=== PATIENT | female | born 1980 | race Caucasian/White ===

== ENCOUNTER 2017-12-07 00:06 | Inpatient (IN) | payer BC ==
[2017-12-07] MEDS ORDERED: Lidocaine 1% 50 ML MDV INJECT PRN (00:34)
[2017-12-07] MEDS ORDERED: Sodium Chloride 0.9% 2.5 ML Syringe FLUSH PRN (00:34)
[2017-12-07] MEDS ORDERED: Sodium Chloride 0.9% 10 ML Syringe FLUSH PRN (00:34)
[2017-12-07] MEDS ORDERED: Methylergonovine 0.2 MG/1 ML Amp IM PRN (00:34)
[2017-12-07] MEDS ORDERED: Terbutaline 1 MG/ML SDV SUBCUT PRN (00:34)
[2017-12-07] MEDS ORDERED: Water For Irrigation,Sterile 1,000 ML Container IRR PRN (00:34)
[2017-12-07] MEDS ORDERED: Carboprost Tromethamine 250 MCG/1 ML Amp IM PRN (00:34)
[2017-12-07] MEDS ORDERED: Misoprostol 25 MCG (1/4 of 100 MCG) Tab PO PRN (00:34)
[2017-12-07] MEDS ORDERED: Tranexamic Acid 1,000 MG in Sodium Chloride 0.9% 100 ML IV PRN (00:34)
[2017-12-07] MEDS ORDERED: Misoprostol 50 MCG (1/2 of 100 MCG) Tab VAG ONE (00:41)
[2017-12-07] MEDS ORDERED: Misoprostol 25 MCG (1/4 of 100 MCG) Tab PO SCH (00:45)
[2017-12-07] MEDS ORDERED: Oxytocin/0.9 % Sodium Chloride 30 UNIT/500 ML BAG IV SCH ×2 (00:45)
[2017-12-07] MEDS ORDERED: Lactated Ringers 1,000 ML IV SCH (00:45)
[2017-12-07] MEDS ORDERED: Nalbuphine 10 MG/1 ML Vial IVPUSH SCH (00:45)
[2017-12-07] MEDS ORDERED: Misoprostol 50 MCG (1/2 of 100 MCG) Tab VAG PRN (03:48)
--- NOTE | 2017-12-07 08:31 | PCM.LDHP ---
L&D History of Present Illness - General Date of Service: 12/07/17 Admit Problem/Dx: Patient Status Order with Admit Dx/Problem 12/07/17 00:34 Patient Status [ADT] Routine Admission Diagnosis/Problem Admission Diagnosis/Problem -related examination 12/07/17 08:26 37 yo EDC 12/02/2017 40 5/7wks A+, R-NI, GBS pos with PCN allergy. IOL for post dates Source of Information: Patient History Limitations: Reports: No Limitations - History of Present Illness Improves with: Reports: None Worsens with: Reports: None Associated Symptoms: Reports: N - Related Data Allergies/Adverse Reactions: Allergies Allergy/AdvReac Type Severity Reaction Status Date / Time amoxicillin trihydrate Allergy rashes Verified 11/30/15 15:39 [From Augmentin] Past Medical History - Past Health History Medical/Surgical History: Denies Medical/Surgical History Social & Family History - Family History Family Medical History: Noncontributory - Tobacco Use Smoking Status *Q: Never Smoker Second Hand Smoke Exposure: No - Caffeine Use Caffeine Use: Reports: Soda - Recreational Drug Use Recreational Drug Use: No H&P Review of Systems - Review of Systems: Review Of Systems: See Below General: Reports: No Symptoms HEENT: Reports: No Symptoms Pulmonary: Reports: No Symptoms Cardiovascular: Reports: No Symptoms Gastrointestinal: Reports: No Symptoms Genitourinary: Reports: No Symptoms Musculoskeletal: Reports: No Symptoms Skin: Reports: No Symptoms Psychiatric: Reports: No Symptoms Neurological: Reports: No Symptoms Hematologic/Lymphatic: Reports: No Symptoms Immunologic: Reports: No Symptoms L&D Exam - Exam Exam: See Below - Vital Signs Weight: 74.389 kg - OB Specific Heart Tones: Present Heart Rate (FHR) Variability: Moderate (6-25 bmp) - Brewer Score Brewer Score Cervix Position: Posterior Brewer Score Consistency: Soft Brewer Score Effacement: 51-70% Brewer Score Dilation: 1-2 cm Brewer Score 's Station: -1 ,0 Brewer Score Total: 7 - Exam General: Alert, Oriented, Cooperative HEENT: Hearing Intact Lungs: Normal Respiratory Effort Rectal Exam: Deferred Genitourinary: Cervical dilitation Back Exam: Normal Inspection, Full Range of Motion Extremities: Normal Inspection, Normal Range of Motion, Non-Tender, No Pedal Edema, Normal Capillary Refill Skin: Warm, Dry, Intact Neurological: Cranial Nerves Intact, Reflexes Equal Bilateral, Normal Gait, Normal Speech, Normal Tone Psychiatric: Alert, Normal Affect, Normal Mood - Patient Data Lab Results Last 24 hrs: Laboratory Results - last 24 hr 12/07/17 12/07/17 Range/Units 01:20 01:20 WBC 9.33 (4.0-11.0) K/uL RBC 3.96 L (4.30-5.90) M/uL Hgb 13.3 (12.0-16.0) g/dL Hct 37.6 (36.0-46.0) % MCV 94.9 (80.0-98.0) fL MCH 33.6 H (27.0-32.0) pg MCHC 35.4 (31.0-37.0) g/dL RDW Std Deviation 41.2 (28.0-62.0) fl RDW Coeff of Laura 12 (11.0-15.0) % Plt Count 288 (150-400) K/uL MPV 11.00 (7.40-12.00) fL Blood Type A POSITIVE Antibody Screen NEGATIVE Result Diagrams: 12/07/17 01:20 - Problem List (1) Supervision of normal IUP (intrauterine ) in primigravida SNOMED Code(s): 85940583, 153321862, 600941002, 749755361 ICD Code: Z34.00 - ENCNTR FOR SUPRVSN OF NORMAL FIRST , UNSP TRIMESTER Status: Acute Priority: High Current Visit: Yes Qualifiers: Trimester: third trimester Qualified Code(s): Z34.03 - Encounter for supervision of normal first , third trimester (2) AMA (advanced maternal age) primigravida 35+ SNOMED Code(s): 85917865, 883970031 ICD Code: O09.519 - SUPERVISION OF ELDERLY PRIMIGRAVIDA, UNSPECIFIED TRIMESTER Status: Acute Priority: High Current Visit: Yes Qualifiers: Trimester: third trimester Qualified Code(s): O09.513 - Supervision of elderly primigravida, third trimester Problem List Initiated/Reviewed/Updated: Yes Orders Last 24hrs: Active Orders 24 hr Category Date Time Status Patient Status [ADT] Routine ADT 12/07/17 00:34 Active Bedrest Bathroom Privileges [RC] ASDIRECTED Care 12/07/17 00:34 Active Communication Order [RC] ASDIRECTED Care 12/07/17 00:34 Active Communication Order [RC] ASDIRECTED Care 12/07/17 00:34 Active Communication Order [RC] ASDIRECTED Care 12/07/17 00:34 Active Heart Tones [RC] CONTINUOUS Care 12/07/17 00:34 Active Non Stress Test [RC] PER UNIT ROUTINE Care 12/07/17 00:34 Active May Shower [RC] ASDIRECTED Care 12/07/17 00:34 Active Notify Provider [RC] PRN Care 12/07/17 00:34 Active Notify Provider [RC] PRN Care 12/07/17 00:34 Active Notify Provider [RC] PRN Care 12/07/17 00:34 Active Notify Provider [RC] STAT Care 12/07/17 00:34 Active Oxygen Therapy [RC] ASDIRECTED Care 12/07/17 00:34 Active Up ad Oly [RC] ASDIRECTED Care 12/07/17 00:34 Active Vaginal Exam [RC] PRN Care 12/07/17 00:34 Active Vaginal Exam [RC] PRN Care 12/07/17 00:34 Active Vital Signs [RC] PER UNIT ROUTINE Care 12/07/17 00:34 Active Vital Signs [RC] PER UNIT ROUTINE Care 12/07/17 00:34 Active Regular Diet [DIET] Diet 12/07/17 Breakfast Active Carboprost Tromethamine [Hemabate DS] Med 12/07/17 00:34 Active 250 mcg IM ASDIRECTED PRN Lactated Ringers [Ringers, Lactated] 1,000 ml Med 12/07/17 00:45 Active IV ASDIRECTED Lidocaine 1% [Xylocaine 1%] Med 12/07/17 00:34 Active 50 ml INJECT .ONCE PRN Methylergonovine [Methergine] Med 12/07/17 00:34 Active 0.2 mg IM ASDIRECTED PRN Misoprostol [Cytotec] Med 12/07/17 00:45 Active 25 mcg PO .ONCE Misoprostol [Cytotec] Med 12/07/17 00:34 Active 25 mcg PO Q4H PRN Misoprostol [Cytotec] Med 12/07/17 03:48 Active 25 mcg VAG Q4H PRN Nalbuphine [Nubain] Med 12/07/17 00:45 Active 10 mg IVPUSH ASDIRECTED Oxytocin/0.9 % Sodium Chloride [Oxytocin 30 Unit/500 ML Med 12/07/17 00:45 Active -NS] 30 unit in 500 ml IV TITRATE Oxytocin/0.9 % Sodium Chloride [Oxytocin 30 Unit/500 ML Med 12/07/17 00:45 Active -NS] 30 unit in 500 ml IV TITRATE Sodium Chloride 0.9% [Saline Flush] Med 12/07/17 00:34 Active 10 ml FLUSH ASDIRECTED PRN Sodium Chloride 0.9% [Saline Flush] Med 12/07/17 00:34 Active 2.5 ml FLUSH ASDIRECTED PRN Terbutaline [Brethine] Med 12/07/17 00:34 Active 0.25 mg SUBCUT ASDIRECTED PRN Tranexamic Acid [Cyklokapron] 1,000 mg Med 12/07/17 00:34 Active Sodium Chloride 0.9% [Normal Saline] 100 ml IV ONETIME Water For Irrigation,Sterile [Sterile Water for Med 12/07/17 00:34 Active Irrigation] 1,000 ml IRR ASDIRECTED PRN Scalp Electrode [WOMSER] Per Unit Routine Oth 12/07/17 00:34 Ordered Medication Administration Instruction [OM.PC] Q3H Oth 12/07/17 00:45 Ordered Peripheral IV Insertion Adult [OM.PC] Routine Oth 12/07/17 00:34 Ordered Resuscitation Status Routine Resus Stat 12/07/17 00:34 Ordered Medication Orders Carboprost Tromethamine (Hemabate Ds) 250 mcg IM ASDIRECTED PRN PRN Reason: Post Hemorrhage Lactated Ringer's (Ringers, Lactated) 1,000 mls @ 150 mls/hr IV ASDIRECTED SITA Oxytocin/Sodium Chloride (Oxytocin 30 Unit/500 Ml-Ns) 30 unit in 500 mls @ 2 mls/hr IV TITRATE SITA; Protocol Oxytocin/Sodium Chloride (Oxytocin 30 Unit/500 Ml-Ns) 30 unit in 500 mls @ 999 mls/hr IV TITRATE SITA Tranexamic Acid 1,000 mg/ (Sodium Chloride) 110 mls @ 660 mls/hr IV ONETIME PRN PRN Reason: Bleeding Lidocaine HCl (Xylocaine 1%) 50 ml INJECT .ONCE PRN PRN Reason: Laceration repair Methylergonovine Maleate (Methergine) 0.2 mg IM ASDIRECTED PRN PRN Reason: Post Hemorrhage Misoprostol (Cytotec) 25 mcg PO .ONCE SITA Last Admin: 12/07/17 02:35 Dose: 25 mcg Misoprostol (Cytotec) 25 mcg PO Q4H PRN PRN Reason: Cervical Ripening Last Admin: 12/07/17 06:52 Dose: 25 mcg Misoprostol (Cytotec) 25 mcg VAG Q4H PRN PRN Reason: cervical ripening Last Admin: 12/07/17 06:52 Dose: 25 mcg Nalbuphine HCl (Nubain) 10 mg IVPUSH ASDIRECTED SITA Stop: 12/09/17 00:46 Sodium Chloride (Saline Flush) 10 ml FLUSH ASDIRECTED PRN PRN Reason: Keep Vein Open Sodium Chloride (Saline Flush) 2.5 ml FLUSH ASDIRECTED PRN PRN Reason: Keep Vein Open Sterile Water (Sterile Water For Irrigation) 1,000 ml IRR ASDIRECTED PRN PRN Reason: delivery Terbutaline Sulfate (Brethine) 0.25 mg SUBCUT ASDIRECTED PRN PRN Reason: Tacysystole Assessment/Plan Comment:: IOL A:37 yo EDC 12/02/2017 40 5/7wks A+, R-NI, GBS pos with PCN allergy. IOL for post dates P: Admit, Cytotec to pitocin, epidrual prn, anticipate . Dr Bautista updated.
[2017-12-07] MEDS ORDERED: Clindamycin Phosphate in D5W 900 MG in Premix Bag 1 BAG IV SCH ×2 (11:00)
--- NOTE | 2017-12-07 11:59 | PCM.PREANE ---
Preanesthetic Assessment - Anesthesia/Transfusion/Family Hx Anesthesia History: No Prior Anesthesia Family History of Anesthesia Reaction: No Transfusion History: No Prior Transfusion(s) - Review of Systems General: No Symptoms Pulmonary: No Symptoms Cardiovascular: No Symptoms Gastrointestinal: No Symptoms Neurological: No Symptoms Other: Reports: None - Physical Assessment Height: 5 ft 4 in Weight: 74.389 kg ASA Class: 2 Mental Status: Alert & Oriented x3 Airway Class: Mallampati = 2 Dentition: Reports: Normal Dentition Thyro-Mental Finger Breadths: 3 Mouth Opening Finger Breadths: 3 ROM/Head Extension: Full Lungs: Clear to Auscultation, Normal Respiratory Effort Cardiovascular: Regular Rate, Regular Rhythm - Lab Values: Laboratory Last Values WBC 9.33 K/uL (4.0-11.0) 12/07/17 01:20 RBC 3.96 M/uL (4.30-5.90) L 12/07/17 01:20 Hgb 13.3 g/dL (12.0-16.0) 12/07/17 01:20 Hct 37.6 % (36.0-46.0) 12/07/17 01:20 MCV 94.9 fL (80.0-98.0) 12/07/17 01:20 MCH 33.6 pg (27.0-32.0) H 12/07/17 01:20 MCHC 35.4 g/dL (31.0-37.0) 12/07/17 01:20 RDW Std Deviation 41.2 fl (28.0-62.0) 12/07/17 01:20 RDW Coeff of Laura 12 % (11.0-15.0) 12/07/17 01:20 Plt Count 288 K/uL (150-400) 12/07/17 01:20 MPV 11.00 fL (7.40-12.00) 12/07/17 01:20 Blood Type A POSITIVE 12/07/17 01:20 Antibody Screen NEGATIVE 12/07/17 01:20 - Allergies Allergies/Adverse Reactions: Allergies Allergy/AdvReac Type Severity Reaction Status Date / Time amoxicillin trihydrate Allergy rashes Verified 11/30/15 15:39 [From Augmentin] - Acknowledgements Anesthesia Type Planned: Epidural Pt an Appropriate Candidate for the Planned Anesthesia: Yes Alternatives and Risks of Anesthesia Discussed w Pt/Guardian: Yes Pt/Guardian Understands and Agrees with Anesthesia Plan: Yes PreAnesthesia Questionnaire - Past Health History Medical/Surgical History: Denies Medical/Surgical History HEENT History: Reports: None Cardiovascular History: Reports: None Respiratory History: Reports: None Gastrointestinal History: Reports: GERD Genitourinary History: Reports: None 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 WINDER History: Reports: : 1 Para: 0 LMP (Approximate): Musculoskeletal History: Reports: None Neurological History: Reports: None Psychiatric History: Reports: None Endocrine/Metabolic History: Reports: None Hematologic History: Reports: None Immunologic History: Reports: None Oncologic (Cancer) History: Reports: None Dermatologic History: Reports: None - Infectious Disease History Infectious Disease History: Reports: None - SUBSTANCE USE Smoking Status *Q: Never Smoker Tobacco Use Within Last Twelve Months: No Second Hand Smoke Exposure: No Recreational Drug Use History: No - CURRENT (IN HOUSE) MEDS Current Meds: Current Medications Carboprost Tromethamine (Hemabate Ds) 250 mcg IM ASDIRECTED PRN PRN Reason: Post Hemorrhage Lactated Ringer's (Ringers, Lactated) 1,000 mls @ 150 mls/hr IV ASDIRECTED SITA Last Admin: 12/07/17 11:00 Dose: 150 mls/hr Oxytocin/Sodium Chloride (Oxytocin 30 Unit/500 Ml-Ns) 30 unit in 500 mls @ 2 mls/hr IV TITRATE SITA; Protocol Oxytocin/Sodium Chloride (Oxytocin 30 Unit/500 Ml-Ns) 30 unit in 500 mls @ 999 mls/hr IV TITRATE SITA Tranexamic Acid 1,000 mg/ (Sodium Chloride) 110 mls @ 660 mls/hr IV ONETIME PRN PRN Reason: Bleeding Clindamycin Phosphate 900 mg/ (Premix) 50 mls @ 100 mls/hr IV Q8H [facility] Last Admin: 12/07/17 11:18 Dose: 100 mls/hr Lidocaine HCl (Xylocaine 1%) 50 ml INJECT .ONCE PRN PRN Reason: Laceration repair Methylergonovine Maleate (Methergine) 0.2 mg IM ASDIRECTED PRN PRN Reason: Post Hemorrhage Misoprostol (Cytotec) 25 mcg PO .ONCE SITA Last Admin: 12/07/17 02:35 Dose: 25 mcg Misoprostol (Cytotec) 25 mcg PO Q4H PRN PRN Reason: Cervical Ripening Last Admin: 12/07/17 06:52 Dose: 25 mcg Misoprostol (Cytotec) 25 mcg VAG Q4H PRN PRN Reason: cervical ripening Last Admin: 12/07/17 06:52 Dose: 25 mcg Nalbuphine HCl (Nubain) 10 mg IVPUSH ASDIRECTED SITA Stop: 12/09/17 00:46 Sodium Chloride (Saline Flush) 10 ml FLUSH ASDIRECTED PRN PRN Reason: Keep Vein Open Sodium Chloride (Saline Flush) 2.5 ml FLUSH ASDIRECTED PRN PRN Reason: Keep Vein Open Sterile Water (Sterile Water For Irrigation) 1,000 ml IRR ASDIRECTED PRN PRN Reason: delivery Terbutaline Sulfate (Brethine) 0.25 mg SUBCUT ASDIRECTED PRN PRN Reason: Tacysystole Discontinued Medications Fentanyl/Bupivacaine HCl ([id number]-Xaonz-Xm 2 Mcg/Ml-0.125%) Confirm Administered Dose 100 mls @ as directed EP .STK-MED ONE Stop: 12/07/17 11:35 Misoprostol (Cytotec) 25 mcg VAG ONETIME ONE Stop: 12/07/17 00:42 Last Admin: 12/07/17 02:35 Dose: 25 mcg
[2017-12-07] MEDS ORDERED: Bisacodyl 10 MG Supp RECTAL PRN (14:09)
[2017-12-07] MEDS ORDERED: Witch Hazel Medicated Pads 40/Jar TOP PRN (14:09)
[2017-12-07] MEDS ORDERED: Lanolin 100% Cream 7 GM Tube TOP PRN (14:09)
[2017-12-07] MEDS ORDERED: Ibuprofen 400 MG Tab PO PRN (14:09)
[2017-12-07] MEDS ORDERED: Acetaminophen 500 MG Tab PO PRN ×2 (14:09)
[2017-12-07] MEDS ORDERED: Benzocaine/Menthol 20%-0.5% Spray 78 GM Cannister TOP PRN (14:09)
--- NOTE | 2017-12-07 14:19 | PCM.DEL ---
L & D Note - General Info Date of Service: 12/07/17 Mother's Due Date: 12/02/17 - Delivery Note Cervical Ripening Method: Misoprostil Delivery Outcome: Livebirth Delivery Method: Spontaneous Vaginal Delivery-Single Delivery Mode: Spontaneous Presentation: Vertex Nuchal Cord: None Anesthesia Type: Epidural Anesthetic: Lidocaine (Xylocaine) 1% Plain Amniotic Fluid Description: Clear Episiotomy Type: Midline Laceration: 2nd Degree Suture type: Vicryl Suture size: 3-0 Placenta: Intact, Spontaneous Cord: 3 Vessels Estimated Blood Loss: 150 Resuscitation Needed: No Score 1 min: 8 Score 5 min: 9 Second Stage Interventions: Reports: Pushing, Pulls Own Legs Back Delivery Comments (Free Text/Narrative):: of viable girl. Head delivered with good pushing, shoulders and body followed easily. Infant to mothers abdomen. Spont cry, RN at for support. Delayed cord clamping. Pitocin to IVF. Cord clamped and cut by FOB. Cord blood collected. Placenta delivered grossly intact. Inspection noted 2nd deg jaswinder lac that was repaired in the usual manor with a 3-0 linda. EBL 150cc, APGARS 8/9 Wt 6lb 8oz. Mother and baby left in stable for recovery bonding well. Induction Criteria - Brewer Score Brewer Score Dilation: 1-2 cm Brewer Score Effacement: 60-70% Brewer Score Infant's Station: -1 ,0 Brewer Score Consistency: Soft Brewer Score Cervix Position: Posterior Brewer Score Total: 7 Brewer Score Presenting Part: Reports: Cephalic - Induction Gestational Age >/= 39 wks: Yes Medical Indication: post dates Estimated Pelvis: Reports: Adequate Reassuring Monitoring Strip: Yes Absence of Tachy Systole: Yes - General Info Date of Service: 12/07/17 Admission Dx/Problem (Free Text): Patient Status Order with Admit Dx/Problem 12/07/17 00:34 Patient Status [ADT] Routine Admission Diagnosis/Problem Admission Diagnosis/Problem -related examination 12/07/17 08:26 37 yo EDC 12/02/2017 40 5/7wks A+, R-NI, GBS pos with PCN allergy. IOL for post dates Functional Status: Reports: Pain Controlled - Review of Systems General: Reports: No Symptoms HEENT: Reports: No Symptoms Pulmonary: Reports: No Symptoms Cardiovascular: Reports: No Symptoms Gastrointestinal: Reports: No Symptoms Genitourinary: Reports: No Symptoms Musculoskeletal: Reports: No Symptoms Skin: Reports: No Symptoms Neurological: Reports: No Symptoms Psychiatric: Reports: No Symptoms - Patient Data Weight - Most Recent: 74.389 kg Lab Results Last 24 Hours: Laboratory Results - last 24 hr 12/07/17 12/07/17 Range/Units 01:20 01:20 WBC 9.33 (4.0-11.0) K/uL RBC 3.96 L (4.30-5.90) M/uL Hgb 13.3 (12.0-16.0) g/dL Hct 37.6 (36.0-46.0) % MCV 94.9 (80.0-98.0) fL MCH 33.6 H (27.0-32.0) pg MCHC 35.4 (31.0-37.0) g/dL RDW Std Deviation 41.2 (28.0-62.0) fl RDW Coeff of Laura 12 (11.0-15.0) % Plt Count 288 (150-400) K/uL MPV 11.00 (7.40-12.00) fL Blood Type A POSITIVE Antibody Screen NEGATIVE Med Orders - Current: Current Medications Acetaminophen (Tylenol Extra Strength) 500 mg PO Q4H PRN PRN Reason: Pain Acetaminophen (Tylenol Extra Strength) 1,000 mg PO Q4H PRN PRN Reason: Pain Benzocaine/Menthol (Dermoplast Pain Relief 20%-0.5% Sadler) 78 gm TOP ASDIRECTED PRN PRN Reason: Perineal Comfort Measure Bisacodyl (Dulcolax) 10 mg RECTAL .ONCE PRN PRN Reason: Constipation Discontinued Medications Carboprost Tromethamine (Hemabate Ds) 250 mcg IM ASDIRECTED PRN PRN Reason: Post Hemorrhage Lactated Ringer's (Ringers, Lactated) 1,000 mls @ 150 mls/hr IV ASDIRECTED SITA Last Admin: 12/07/17 11:00 Dose: 150 mls/hr Oxytocin/Sodium Chloride (Oxytocin 30 Unit/500 Ml-Ns) 30 unit in 500 mls @ 2 mls/hr IV TITRATE SITA; Protocol Oxytocin/Sodium Chloride (Oxytocin 30 Unit/500 Ml-Ns) 30 unit in 500 mls @ 999 mls/hr IV TITRATE COUNT INCLUDES THE [facility] Last Admin: 12/07/17 13:26 Dose: 999 mls/hr Tranexamic Acid 1,000 mg/ (Sodium Chloride) 110 mls @ 660 mls/hr IV ONETIME PRN PRN Reason: Bleeding Clindamycin Phosphate 900 mg/ (Premix) 50 mls @ 100 mls/hr IV Q8H COUNT INCLUDES THE [facility] Last Admin: 12/07/17 11:18 Dose: 100 mls/hr Fentanyl/Bupivacaine HCl (Pgqfhgxk-Pnbbn-Vc 2 Mcg/Ml-0.125%) Confirm Administered Dose 100 mls @ as directed EP .STK-MED ONE Stop: 12/07/17 11:35 Lidocaine HCl (Xylocaine 1%) 50 ml INJECT .ONCE PRN PRN Reason: Laceration repair Methylergonovine Maleate (Methergine) 0.2 mg IM ASDIRECTED PRN PRN Reason: Post Hemorrhage Misoprostol (Cytotec) 25 mcg PO .ONCE SITA Last Admin: 12/07/17 02:35 Dose: 25 mcg Misoprostol (Cytotec) 25 mcg PO Q4H PRN PRN Reason: Cervical Ripening Last Admin: 12/07/17 06:52 Dose: 25 mcg Misoprostol (Cytotec) 25 mcg VAG ONETIME ONE Stop: 12/07/17 00:42 Last Admin: 12/07/17 02:35 Dose: 25 mcg Misoprostol (Cytotec) 25 mcg VAG Q4H PRN PRN Reason: cervical ripening Last Admin: 12/07/17 06:52 Dose: 25 mcg Nalbuphine HCl (Nubain) 10 mg IVPUSH ASDIRECTED COUNT INCLUDES THE [facility] Stop: 12/09/17 00:46 Sodium Chloride (Saline Flush) 10 ml FLUSH ASDIRECTED PRN PRN Reason: Keep Vein Open Sodium Chloride (Saline Flush) 2.5 ml FLUSH ASDIRECTED PRN PRN Reason: Keep Vein Open Sterile Water (Sterile Water For Irrigation) 1,000 ml IRR ASDIRECTED PRN PRN Reason: delivery Terbutaline Sulfate (Brethine) 0.25 mg SUBCUT ASDIRECTED PRN PRN Reason: Tacysystole - Exam General: Alert, Oriented, Cooperative, No Acute Distress Lungs: Normal Respiratory Effort GI/Abdominal Exam: Soft, Non-Tender (Female) Exam: Normal External Exam, Normal Bimanual Exam, Vaginal Bleeding Back Exam: Normal Inspection, Full Range of Motion Extremities: Normal Inspection, Normal Range of Motion, Non-Tender, No Pedal Edema, Normal Capillary Refill Skin: Warm, Dry, Intact Wound/Incisions: Healing Well Neurological: No New Focal Deficit, Normal Speech, Normal Tone Psy/Mental Status: Alert, Normal Affect, Normal Mood - Problem List & Annotations (1) Supervision of normal IUP (intrauterine ) in primigravida SNOMED Code(s): 99147533, 197557276, 816101327, 773531670 Code(s): Z34.00 - ENCNTR FOR SUPRVSN OF NORMAL FIRST , UNSP TRIMESTER Status: Acute Priority: High Current Visit: Yes Qualifiers: Trimester: third trimester Qualified Code(s): Z34.03 - Encounter for supervision of normal first , third trimester (2) AMA (advanced maternal age) primigravida 35+ SNOMED Code(s): 99069129, 673081727 Code(s): O09.519 - SUPERVISION OF ELDERLY PRIMIGRAVIDA, UNSPECIFIED TRIMESTER Status: Acute Priority: High Current Visit: Yes Qualifiers: Trimester: third trimester Qualified Code(s): O09.513 - Supervision of elderly primigravida, third trimester (3) (normal spontaneous vaginal delivery) SNOMED Code(s): 48516415 Code(s): O80 - ENCOUNTER FOR FULL-TERM UNCOMPLICATED DELIVERY Status: Acute Priority: High Current Visit: Yes - Problem List Review Problem List Initiated/Reviewed/Updated: Yes - My Orders Last 24 Hours: My Active Orders 12/07/ 00:34 Bedrest Bathroom Privileges [RC] ASDIRECTED Communication Order [RC] ASDIRECTED Communication Order [RC] ASDIRECTED Communication Order [RC] ASDIRECTED Heart Tones [RC] CONTINUOUS Non Stress Test [RC] PER UNIT ROUTINE May Shower [RC] ASDIRECTED Notify Provider [RC] PRN Notify Provider [RC] PRN Notify Provider [RC] PRN Notify Provider [RC] STAT Oxygen Therapy [RC] ASDIRECTED Up ad Oly [RC] ASDIRECTED Vaginal Exam [RC] PRN Vaginal Exam [RC] PRN Vital Signs [RC] PER UNIT ROUTINE Vital Signs [RC] PER UNIT ROUTINE 12/07/17 14:09 Patient Status [ADT] Routine May Shower [RC] ASDIRECTED Up ad Oly [RC] ASDIRECTED Vital Signs [RC] PER UNIT ROUTINE Acetaminophen [Tylenol Extra Strength] 1,000 mg PO Q4H PRN Acetaminophen [Tylenol Extra Strength] 500 mg PO Q4H PRN Benzocaine/Menthol [Dermoplast Pain Relief 20%-0.5% Sadler] 78 gm TOP ASDIRECTED PRN Bisacodyl [Dulcolax] 10 mg RECTAL .ONCE PRN Docusate Sodium [Colace] 100 mg PO BID PRN Ibuprofen [Motrin] 400 mg PO Q4H PRN Ibuprofen [Motrin] 800 mg PO Q6H PRN Lanolin [Lansinoh HPA] See Dose Instructions TOP ASDIRECTED PRN Witch Verena [Tucks] 1 pad TOP ASDIRECTED PRN oxyCODONE 5 mg PO Q2H PRN Assess Lochia [WOMSER] Per Unit Routine Assess Uterine Involution [WOMSER] Per Unit Routine Peripheral IV Discontinue [OM.PC] Routine Resuscitation Status Routine 12/07/17 Lunch Regular Diet [DIET] - Plan Plan:: IOL A:37 yo EDC 12/02/2017 40 5/7wks A+, R-NI, GBS pos with PCN allergy. IOL for post dates P: Admit, Cytotec to pitocin, epidrual prn, anticipate . Dr Bautista updated. A: of viable female. APGARS 8/9 WT: 6lb 8oz, EBL 150cc, 2nd deg lac with repair. Mother and baby left in stable condition for recovery P: Routine pp plan of care
[2017-12-07] MEDS: Ibuprofen 800 MG Tab PO PRN ×2 (14:47→21:54)
[2017-12-07] MEDS: Docusate Sodium 100 MG Cap PO PRN (14:47)
--- NOTE | 2017-12-07 17:20 | PCM48HPAN ---
Post Anesthesia Note - EVALUATION WITHIN 48HRS OF ANESTHETIC Vital Signs in Normal Range: Yes Patient Participated in Evaluation: Yes Respiratory Function Stable: Yes Airway Patent: Yes Cardiovascular Function Stable: Yes Hydration Status Stable: Yes Pain Control Satisfactory: Yes Nausea and Vomiting Control Satisfactory: Yes Mental Status Recovered: Yes
[2017-12-08] MEDS: Ibuprofen 800 MG Tab PO PRN ×3 (05:28→20:14)
--- NOTE | 2017-12-08 08:20 | PCM.DCSUM1 ---
Discharge Summary - Hospital Course Free Text/Narrative:: Discharge home with infant. Follow up 6 weeks for post or sooner if needed. - Discharge Data Discharge Date: 12/08/17 Discharge Disposition: Home, Self-Care 01 Condition: Good - Discharge Diagnosis/Problem(s) (1) Supervision of normal IUP (intrauterine ) in primigravida SNOMED Code(s): 93741576, 711178501, 366959733, [id number] ICD Code: Z34.00 - ENCNTR FOR SUPRVSN OF NORMAL FIRST , UNSP TRIMESTER Status: Acute Priority: High Current Visit: Yes Qualifiers: Trimester: third trimester Qualified Code(s): Z34.03 - Encounter for supervision of normal first , third trimester (2) AMA (advanced maternal age) primigravida 35+ SNOMED Code(s): 43020233, 028380516 ICD Code: O09.519 - SUPERVISION OF ELDERLY PRIMIGRAVIDA, UNSPECIFIED TRIMESTER Status: Acute Priority: High Current Visit: Yes Qualifiers: Trimester: third trimester Qualified Code(s): O09.513 - Supervision of elderly primigravida, third trimester (3) (normal spontaneous vaginal delivery) SNOMED Code(s): 44298339 ICD Code: O80 - ENCOUNTER FOR FULL-TERM UNCOMPLICATED DELIVERY Status: Acute Priority: High Current Visit: Yes - Patient Instructions Diet: Usual Diet as Tolerated Activity: As Tolerated, No Strenuous Activities, Rest and Relax Today Driving: May Drive Today Showering/Bathing: May Shower Notify Provider of: Fever, Increased Pain, Swelling and Redness, Nausea and/or Vomiting Other/Special Instructions: Discharge home with infant. Follow up 6 weeks for post or sooner if needed. - Discharge Plan Referrals: [facility] [Outside] Laly Euceda CNM [Primary Care Provider] - 01/19/18 10:45 am - General Info Date of Service: 12/08/17 Admission Dx/Problem (Free Text: Patient Status Order with Admit Dx/Problem 12/07/17 00:34 Patient Status [ADT] Routine Admission Diagnosis/Problem Admission Diagnosis/Problem -related examination 12/07/17 08:26 37 yo EDC 12/02/2017 40 5/7wks A+, R-NI, GBS pos with PCN allergy. IOL for post dates Functional Status: Reports: Pain Controlled, Tolerating Diet, Ambulating, Urinating - Review of Systems General: Reports: No Symptoms HEENT: Reports: No Symptoms Pulmonary: Reports: No Symptoms Cardiovascular: Reports: No Symptoms Gastrointestinal: Reports: No Symptoms Genitourinary: Reports: No Symptoms Musculoskeletal: Reports: No Symptoms Skin: Reports: No Symptoms Neurological: Reports: No Symptoms Psychiatric: Reports: No Symptoms - Patient Data Vitals - Most Recent: Last Vital Signs Temp 36.9 C 12/08/17 04:05 Pulse 69 12/08/17 04:05 Resp 14 12/08/17 04:05 BP 103/57 L 12/08/17 04:05 Pulse Ox 98 12/08/17 04:05 Weight - Most Recent: 74.389 kg Med Orders - Current: Current Medications Acetaminophen (Tylenol Extra Strength) 500 mg PO Q4H PRN PRN Reason: Pain Acetaminophen (Tylenol Extra Strength) 1,000 mg PO Q4H PRN PRN Reason: Pain Benzocaine/Menthol (Dermoplast Pain Relief 20%-0.5% [place]) 78 gm TOP ASDIRECTED PRN PRN Reason: Perineal Comfort Measure Last Admin: 12/07/17 14:48 Dose: 1 canister Bisacodyl (Dulcolax) 10 mg RECTAL .ONCE PRN PRN Reason: Constipation Docusate Sodium (Colace) 100 mg PO BID PRN PRN Reason: Constipation Last Admin: 12/07/17 14:47 Dose: 100 mg Emollient Ointment (Lansinoh Hpa) 0 gm TOP ASDIRECTED PRN PRN Reason: Sore Nipples Ibuprofen (Motrin) 400 mg PO Q4H PRN PRN Reason: Pain Ibuprofen (Motrin) 800 mg PO Q6H PRN PRN Reason: Pain Last Admin: 12/08/17 05:28 Dose: 800 mg Oxycodone HCl (Oxycodone) 5 mg PO Q2H PRN PRN Reason: Pain Witch Verena (Tucks) 1 pad TOP ASDIRECTED PRN PRN Reason: comfort care Last Admin: 12/07/17 14:47 Dose: 1 tub Discontinued Medications Carboprost Tromethamine (Hemabate Ds) 250 mcg IM ASDIRECTED PRN PRN Reason: Post Hemorrhage Lactated Ringer's (Ringers, Lactated) 1,000 mls @ 150 mls/hr IV ASDIRECTED [facility] Last Admin: 12/07/17 11:00 Dose: 150 mls/hr Oxytocin/Sodium Chloride (Oxytocin 30 Unit/500 Ml-Ns) 30 unit in 500 mls @ 2 mls/hr IV TITRATE [facility]; Protocol Oxytocin/Sodium Chloride (Oxytocin 30 Unit/500 Ml-Ns) 30 unit in 500 mls @ 999 mls/hr IV TITRATE [facility] Last Admin: 12/07/17 13:26 Dose: 999 mls/hr Tranexamic Acid 1,000 mg/ (Sodium Chloride) 110 mls @ 660 mls/hr IV ONETIME PRN PRN Reason: Bleeding Clindamycin Phosphate 900 mg/ (Premix) 50 mls @ 100 mls/hr IV Q8H [facility] Last Admin: 12/07/17 11:18 Dose: 100 mls/hr Fentanyl/Bupivacaine HCl (Hvmoeoii-Fdfml-Nm 2 Mcg/Ml-0.125%) Confirm Administered Dose 100 mls @ as directed EP .STK-MED ONE Stop: 12/07/17 11:35 Last Admin: 12/07/17 23:54 Dose: Not Given Lidocaine HCl (Xylocaine 1%) 50 ml INJECT .ONCE PRN PRN Reason: Laceration repair Last Admin: 12/07/17 13:20 Dose: 50 ml Methylergonovine Maleate (Methergine) 0.2 mg IM ASDIRECTED PRN PRN Reason: Post Hemorrhage Misoprostol (Cytotec) 25 mcg PO .ONCE SITA Last Admin: 12/07/17 02:35 Dose: 25 mcg Misoprostol (Cytotec) 25 mcg PO Q4H PRN PRN Reason: Cervical Ripening Last Admin: 12/07/17 06:52 Dose: 25 mcg Misoprostol (Cytotec) 25 mcg VAG ONETIME ONE Stop: 12/07/17 00:42 Last Admin: 12/07/17 02:35 Dose: 25 mcg Misoprostol (Cytotec) 25 mcg VAG Q4H PRN PRN Reason: cervical ripening Last Admin: 12/07/17 06:52 Dose: 25 mcg Nalbuphine HCl (Nubain) 10 mg IVPUSH ASDIRECTED [facility] Stop: 12/09/17 00:46 Sodium Chloride (Saline Flush) 10 ml FLUSH ASDIRECTED PRN PRN Reason: Keep Vein Open Sodium Chloride (Saline Flush) 2.5 ml FLUSH ASDIRECTED PRN PRN Reason: Keep Vein Open Sterile Water (Sterile Water For Irrigation) 1,000 ml IRR ASDIRECTED PRN PRN Reason: delivery Terbutaline Sulfate (Brethine) 0.25 mg SUBCUT ASDIRECTED PRN PRN Reason: Tacysystole - Exam General: Reports: Alert, Oriented, Cooperative, No Acute Distress Lungs: Reports: Clear to Auscultation, Normal Respiratory Effort Cardiovascular: Reports: Regular Rate, Regular Rhythm, No Murmurs GI/Abdominal Exam: Normal Bowel Sounds, Soft, Non-Tender, No Organomegaly, No Distention, No Abnormal Bruit, No Mass, Pelvis Stable (Female) Exam: Vaginal Bleeding Rectal (Female) Exam: Deferred Back Exam: Reports: Normal Inspection, Full Range of Motion Extremities: Normal Inspection, Normal Range of Motion, Non-Tender, No Pedal Edema, Normal Capillary Refill Skin: Reports: Warm, Dry, Intact Wound/Incisions: Reports: Healing Well Neurological: Reports: No New Focal Deficit, Normal Gait, Normal Speech, Normal Tone Psy/Mental Status: Reports: Alert, Normal Affect, Normal Mood
[2017-12-08] MEDS: oxyCODONE 5 MG Tab PO PRN ×2 (15:40→20:15)
[2017-12-08] MEDS: Docusate Sodium 100 MG Cap PO PRN (20:14)
[2017-12-09] MEDS: oxyCODONE 5 MG Tab PO PRN ×2 (06:18→15:39)
[2017-12-09] MEDS: Ibuprofen 800 MG Tab PO PRN ×2 (06:19→15:39)
--- NOTE | 2017-12-09 10:03 | PCM.PNPP ---
- General Info Date of Service: 12/09/17 Functional Status: Reports: Pain Controlled - Review of Systems General: Reports: No Symptoms HEENT: Reports: No Symptoms Pulmonary: Reports: No Symptoms Cardiovascular: Reports: No Symptoms Gastrointestinal: Reports: No Symptoms Genitourinary: Reports: No Symptoms Musculoskeletal: Reports: No Symptoms Skin: Reports: No Symptoms Neurological: Reports: No Symptoms Psychiatric: Reports: No Symptoms - General Info Date of Service: 12/09/17 - Patient Data Vital Signs - Most Recent: Last Vital Signs Temp 36.4 C 12/09/17 04:00 Pulse 68 12/09/17 04:00 Resp 15 12/09/17 04:00 BP 92/52 L 12/09/17 04:00 Pulse Ox 97 12/09/17 04:00 Weight - Most Recent: 74.389 kg Med Orders - Current: Current Medications Acetaminophen (Tylenol Extra Strength) 500 mg PO Q4H PRN PRN Reason: Pain Acetaminophen (Tylenol Extra Strength) 1,000 mg PO Q4H PRN PRN Reason: Pain Benzocaine/Menthol (Dermoplast Pain Relief 20%-0.5% [place]) 78 gm TOP ASDIRECTED PRN PRN Reason: Perineal Comfort Measure Last Admin: 12/07/17 14:48 Dose: 1 canister Bisacodyl (Dulcolax) 10 mg RECTAL .ONCE PRN PRN Reason: Constipation Docusate Sodium (Colace) 100 mg PO BID PRN PRN Reason: Constipation Last Admin: 12/08/17 20:14 Dose: 100 mg Emollient Ointment (Lansinoh Hpa) 0 gm TOP ASDIRECTED PRN PRN Reason: Sore Nipples Ibuprofen (Motrin) 400 mg PO Q4H PRN PRN Reason: Pain Ibuprofen (Motrin) 800 mg PO Q6H PRN PRN Reason: Pain Last Admin: 12/09/17 06:19 Dose: 800 mg Oxycodone HCl (Oxycodone) 5 mg PO Q2H PRN PRN Reason: Pain Last Admin: 12/09/17 06:18 Dose: 5 mg Witch Verena (Tucks) 1 pad TOP ASDIRECTED PRN PRN Reason: comfort care Last Admin: 12/07/17 14:47 Dose: 1 tub Discontinued Medications Carboprost Tromethamine (Hemabate Ds) 250 mcg IM ASDIRECTED PRN PRN Reason: Post Hemorrhage Lactated Ringer's (Ringers, Lactated) 1,000 mls @ 150 mls/hr IV ASDIRECTED [facility] Last Admin: 12/07/17 11:00 Dose: 150 mls/hr Oxytocin/Sodium Chloride (Oxytocin 30 Unit/500 Ml-Ns) 30 unit in 500 mls @ 2 mls/hr IV TITRATE [facility]; Protocol Oxytocin/Sodium Chloride (Oxytocin 30 Unit/500 Ml-Ns) 30 unit in 500 mls @ 999 mls/hr IV TITRATE [facility] Last Admin: 12/07/17 13:26 Dose: 999 mls/hr Tranexamic Acid 1,000 mg/ (Sodium Chloride) 110 mls @ 660 mls/hr IV ONETIME PRN PRN Reason: Bleeding Clindamycin Phosphate 900 mg/ (Premix) 50 mls @ 100 mls/hr IV Q8H [facility] Last Admin: 12/07/17 11:18 Dose: 100 mls/hr Fentanyl/Bupivacaine HCl (Bsokljyw-Ywnjf-Qu 2 Mcg/Ml-0.125%) Confirm Administered Dose 100 mls @ as directed EP .STK-MED ONE Stop: 12/07/17 11:35 Last Admin: 12/07/17 23:54 Dose: Not Given Lidocaine HCl (Xylocaine 1%) 50 ml INJECT .ONCE PRN PRN Reason: Laceration repair Last Admin: 12/07/17 13:20 Dose: 50 ml Methylergonovine Maleate (Methergine) 0.2 mg IM ASDIRECTED PRN PRN Reason: Post Hemorrhage Misoprostol (Cytotec) 25 mcg PO .ONCE SITA Last Admin: 12/07/17 02:35 Dose: 25 mcg Misoprostol (Cytotec) 25 mcg PO Q4H PRN PRN Reason: Cervical Ripening Last Admin: 12/07/17 06:52 Dose: 25 mcg Misoprostol (Cytotec) 25 mcg VAG ONETIME ONE Stop: 12/07/17 00:42 Last Admin: 12/07/17 02:35 Dose: 25 mcg Misoprostol (Cytotec) 25 mcg VAG Q4H PRN PRN Reason: cervical ripening Last Admin: 12/07/17 06:52 Dose: 25 mcg Nalbuphine HCl (Nubain) 10 mg IVPUSH ASDIRECTED [facility] Stop: 12/09/17 00:46 Sodium Chloride (Saline Flush) 10 ml FLUSH ASDIRECTED PRN PRN Reason: Keep Vein Open Sodium Chloride (Saline Flush) 2.5 ml FLUSH ASDIRECTED PRN PRN Reason: Keep Vein Open Sterile Water (Sterile Water For Irrigation) 1,000 ml IRR ASDIRECTED PRN PRN Reason: delivery Terbutaline Sulfate (Brethine) 0.25 mg SUBCUT ASDIRECTED PRN PRN Reason: Tacysystole - Infant Interaction Support Person: Significant Other - Recovery Exam Fundal Tone: Firm Fundal Level: 2 Fingerbreadths Below Umbilicus Fundal Placement: Midline Lochia Amount: Scant Lochia Color: Rubra/Red Perineum Description: Other (see below) Other Perinuem Description: 2nd degree laceration. Episiotomy/Laceration: Approximated Bladder Status: Voiding - Exam General: Alert, Oriented HEENT: Pupils Equal Neck: Supple Lungs: Clear to Auscultation, Normal Respiratory Effort Cardiovascular: Regular Rate, Regular Rhythm GI/Abdominal Exam: Normal Bowel Sounds, Soft, Non-Tender, No Organomegaly, No Distention, No Abnormal Bruit, No Mass, Pelvis Stable Extremities: Normal Inspection, Normal Range of Motion, Non-Tender, No Pedal Edema, Normal Capillary Refill Skin: Warm, Dry, Intact Wound/Incisions: Healing Well Neurological: No New Focal Deficit Psy/Mental Status: Alert, Normal Affect, Normal Mood - Problem List Review Problem List Initiated/Reviewed/Updated: Yes - Assessment Assessment:: send home today. - Plan Plan:: IOL A:37 yo EDC 12/02/2017 40 5/7wks A+, R-NI, GBS pos with PCN allergy. IOL for post dates P: Admit, Cytotec to pitocin, epidrual prn, anticipate . Dr Bautista updated. A: of viable female. APGARS 8/9 WT: 6lb 8oz, EBL 150cc, 2nd deg lac with repair. Mother and baby left in stable condition for recovery P: Routine pp plan of care
[2017-12-09] MEDS ORDERED: Measles, Mumps & Rubella Vaccine 0.5 ML SDV SUBCUT ONE (15:41)
[2017-12-09 16:18] VITALS: BP 110/59
== END 2017-12-09 17:50 | disposition home or self-care (01) | DRG 560 ==
LOC: MW.OBCHECK 00:06 → MW.OB 00:08 → MW.OBCHECK 00:34 → OBSVTOIN 13:17 → MW.OB 18:26
PROVIDERS: ADMIT Obstetrics & Gynecology; ATTEND Obstetrics & Gynecology
PROC: 10E0XZZ Delivery of Products of Conception, External Approach (ICD-10-PCS; principal; 2017-12-07)
PROC: 3E0P7VZ Introduction of Hormone into Female Reproductive, Via Natural or Artificial Opening (ICD-10-PCS; 2017-12-07)
PROC: 3E033VJ Introduction of Other Hormone into Peripheral Vein, Percutaneous Approach (ICD-10-PCS; 2017-12-07)
PROC: 0KQM0ZZ Repair Perineum Muscle, Open Approach (ICD-10-PCS; 2017-12-07)
PROC: 3E0234Z Introduction of Serum, Toxoid and Vaccine into Muscle, Percutaneous Approach (ICD-10-PCS; 2017-12-09)
DX: O48.0 Post-term pregnancy (principal); O70.1 Second degree perineal laceration during delivery; Z3A.40 40 weeks gestation of pregnancy; Z37.0 Single live birth; Z88.0 Allergy status to penicillin; Z23 Encounter for immunization
CPT/HCPCS: 36415; 59025; 59409; 85027; 86850; 86900; 86901; 90471; 90707; A9270-GY; J2590; J7120

== ENCOUNTER 2019-09-18 08:00 | Day surgery (SDC) | payer BC ==
[~2019-09-18 08:00] MED LIST: Clindamycin Phosphate in D5W 600 MG in Premix Bag 1 BAG IV SCH; Desflurane 240 ML Bottle ONE; Ketorolac 30 MG/ML SDV ONE; Lactated Ringers 1,000 ML IV SCH; Midazolam 1 MG/ML 2 ML SDV ONE; Ondansetron 4 MG/2 ML SDV ONE; Propofol 200 MG/20 ML SDV ONE; fentaNYL 100 MCG/2 ML SDV ONE
[2019-09-18] MEDS ORDERED: Glycopyrrolate 0.2 MG/ML SDV ONE (08:49)
[2019-09-18] MEDS ORDERED: Lidocaine 2% 5 ML SDV ONE (08:50)
--- NOTE | 2019-09-18 08:59 | PCM.PREANE ---
Preanesthetic Assessment - Anesthesia/Transfusion/Family Hx Anesthesia History: No Prior Anesthesia Family History of Anesthesia Reaction: No Transfusion History: No Prior Transfusion(s) - Review of Systems General: No Symptoms Pulmonary: No Symptoms Cardiovascular: No Symptoms Gastrointestinal: No Symptoms Neurological: No Symptoms Other: Reports: None - Physical Assessment NPO Status Date: 09/17/19 NPO Status Time: 22:30 Vital Signs: Last Vital Signs Temp 97.0 F 09/18/19 08:06 Pulse 91 09/18/19 08:06 Resp 18 09/18/19 08:06 BP 136/70 09/18/19 08:06 Pulse Ox 97 09/18/19 08:06 Height: 5 ft 4 in Weight: 65.771 kg ASA Class: 1 Mental Status: Alert & Oriented x3 Airway Class: Mallampati = 1 Dentition: Reports: Implants (all central maxillary incisors) ROM/Head Extension: Full Lungs: Clear to Auscultation, Normal Respiratory Effort Cardiovascular: Regular Rate, Regular Rhythm - Allergies Allergies/Adverse Reactions: Allergies Allergy/AdvReac Type Severity Reaction Status Date / Time amoxicillin Allergy Rash Verified 09/12/19 12:36 - Blood Blood Available: No - Anesthesia Plan Pre-Op Medication Ordered: None - Acknowledgements Anesthesia Type Planned: General Anesthesia Pt an Appropriate Candidate for the Planned Anesthesia: Yes Alternatives and Risks of Anesthesia Discussed w Pt/Guardian: Yes Pt/Guardian Understands and Agrees with Anesthesia Plan: Yes Additional Comments: PMH: none PLAN: ga/lma PreAnesthesia Questionnaire - Past Health History Medical/Surgical History: Denies Medical/Surgical History HEENT History: Reports: Other (See Below) Other HEENT History: wears glasses/contacts, dental implant Cardiovascular History: Reports: None Respiratory History: Reports: None Gastrointestinal History: Reports: None, GERD Genitourinary History: Reports: None 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 [employer]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: Reports: Musculoskeletal History: Reports: None Neurological History: Reports: None Psychiatric History: Reports: None Endocrine/Metabolic History: Reports: None Hematologic History: Reports: None Immunologic History: Reports: None Oncologic (Cancer) History: Reports: None Dermatologic History: Reports: None - Infectious Disease History Infectious Disease History: Reports: None - Past Surgical History Head Surgeries/Procedures: Reports: None HEENT Surgical History: Reports: None Cardiovascular Surgical History: Reports: None Respiratory Surgical History: Reports: None GI Surgical History: Reports: None Female Surgical History: Reports: None Endocrine Surgical History: Reports: None Neurological Surgical History: Reports: None Musculoskeletal Surgical History: Reports: None Oncologic Surgical History: Reports: None Dermatological Surgical History: Reports: None - SUBSTANCE USE Smoking Status *Q: Current Every Day Smoker Tobacco Use Within Last Twelve Months: Cigarettes - HOME MEDS Home Medications: Home Meds Pnv No.95/Ferrous Fum/Folic AC [ Vitamin Tablet] 1 tab PO DAILY [History] clomiPHENE citrate [Clomiphene Citrate] 2 tab PO ASDIRECTED 09/12/19 [History] - CURRENT (IN HOUSE) MEDS Current Meds: Current Medications Clindamycin Phosphate 600 mg/ (Premix) 50 mls @ 92.593 mls/hr IV ONCALL [facility] Last Admin: 09/18/19 08:40 Dose: 92.593 mls/hr Lactated Ringer's (Ringers, Lactated) 1,000 mls @ 100 mls/hr IV ASDIRECTED [facility] Last Admin: 09/18/19 08:35 Dose: 100 mls/hr Discontinued Medications Desflurane (Suprane) Confirm Administered Dose 240 ml .ROUTE .STK-MED ONE Stop: 09/16/19 06:56 Fentanyl (Sublimaze) Confirm Administered Dose 100 mcg .ROUTE .STK-MED ONE Stop: 09/18/19 07:12 Glycopyrrolate (Robinul) Confirm Administered Dose 0.2 mg .ROUTE .STK-MED ONE Stop: 09/18/19 08:50 Ketorolac Tromethamine (Toradol) Confirm Administered Dose 30 mg .ROUTE .STK- MED ONE Stop: 09/18/19 07:12 Lidocaine (Xylocaine-Mpf 2%) Confirm Administered Dose 5 ml .ROUTE .STK-MED ONE Stop: 09/18/19 08:51 Midazolam HCl (Versed 1 Mg/Ml) Confirm Administered Dose 2 mg .ROUTE .STK-MED ONE Stop: 09/18/19 07:12 Ondansetron HCl (Zofran) Confirm Administered Dose 4 mg .ROUTE .STK-MED ONE Stop: 09/18/19 07:12 Propofol (Diprivan 20 Ml) Confirm Administered Dose 400 mg .ROUTE .STK-MED ONE Stop: 09/18/19 07:12
[2019-09-18] MEDS ORDERED: Lidocaine 1% 20 ML MDV ONE (09:22)
[2019-09-18] MEDS ORDERED: fentaNYL 100 MCG/2 ML SDV ONE ×3 (10:04→11:22)
[2019-09-18] MEDS ORDERED: Acetaminophen 1,000 MG in Premix Bag 1 BAG IV PRN (10:18)
[2019-09-18] MEDS ORDERED: Bupivacaine 0.5%/EPINEPHrine 1:200,000 10 ML SDV ONE (11:29)
[2019-09-18] MEDS ORDERED: HYDROmorphone 2 MG/ML Syringe ONE (11:49)
[2019-09-18] MEDS ORDERED: HYDROmorphone 2 MG/ML Syringe IVPUSH PRN (11:52)
[2019-09-18] MEDS: fentaNYL 100 MCG/2 ML SDV IVPUSH PRN ×2 (12:10→12:15)
[2019-09-18] MEDS ORDERED: HYDROmorphone 2 MG/ML Syringe IVPUSH ONE ×2 (12:13→12:46)
[2019-09-18] MEDS ORDERED: Ketamine 500 mg/10 ML MDV ONE (12:41)
[2019-09-18] MEDS ORDERED: Ketorolac 30 MG/ML SDV ONE (12:41)
[2019-09-18] MEDS ORDERED: Ketamine 500 mg/10 ML MDV IV ONE (12:45)
[2019-09-18] MEDS ORDERED: Ketorolac 30 MG/ML SDV IVPUSH ONE (12:46)
[2019-09-18] MEDS ORDERED: diphenhydrAMINE 50 MG/ML SDV IVPUSH PRN (13:37)
[2019-09-18] MEDS ORDERED: diphenhydrAMINE 50 MG/ML SDV ONE (13:37)
--- NOTE | 2019-09-18 13:55 | PCM.POSTAN ---
POST ANESTHESIA ASSESSMENT - MENTAL STATUS Mental Status: Alert, Oriented - VITAL SIGNS Vital Signs: Last Vital Signs Temp 99.1 F 09/18/19 11:46 Pulse 85 09/18/19 13:36 Resp 12 09/18/19 13:36 BP 116/51 L 09/18/19 13:36 Pulse Ox 94 L 09/18/19 13:36 - RESPIRATORY Respiratory Status: Respiratory Rate WNL, Airway Patent, O2 Saturation Stable - CARDIOVASCULAR CV Status: Pulse Rate WNL, Blood Pressure Stable - GASTROINTESTINAL GI Status: No Symptoms - PAIN Pain Score: 6 - POST OP HYDRATION Hydration Status: Adequate & Stable - OBSERVATIONS Free Text/Narrative:: Pt has received extensive narcotics (4mg Dilaudid/100 mcg Fentanyl/25mg Ketamine ) plus Tordol, IV Ofirmev, and Benadryl for itching. After exhausting the IV route of pain control, pt and surgeon were in agreement with tying a femoral nerve block. Prior to nerve block, pt was rating her pain 7-8/10, post nerve block she is rating her pain 6/10 and states "it comes and goes". Discussed with Dr. Jacobson and he wants her to return to phase II and he will evaluate her there regarding staying overnight vs discharging home.
[2019-09-18] MEDS ORDERED: Bupivacaine 0.25%/EPINEPHrine 1:200,000 10 ML SDV ONE (14:11)
--- NOTE | 2019-09-18 14:30 | PCM.OPNOTE ---
- General Post-Op/Procedure Note Date of Surgery/Procedure: 09/18/19 Operative Procedure(s): left acl reconstruction. partial medial menisectomy Pre Op Diagnosis: left acl tear Post-Op Diagnosis: left acl tear. left medial meniscus tear Anesthesia Technique: General ET Tube Primary Surgeon: Enrico Jacobson EBL in mLs: 25 Complications: None Condition: Good Free Text/Narrative:: Intake & Output 09/17/19 09/18/19 09/18/19 22:59 06:59 14:59 Intake Total 1400 Balance 1400
[2019-09-18] MEDS ORDERED: traMADol 50 MG Tab PO PRN (16:56)
[2019-09-18] MEDS ORDERED: Dexamethasone 10 MG/ML SDV IVPUSH SCH ×2 (17:00→19:30)
[2019-09-18] MEDS ORDERED: Diazepam 5 MG Tab PO PRN (17:01)
--- NOTE | 2019-09-18 17:04 | OR ---
SURGEON: Enrico Jacobson DATE OF PROCEDURE: 09/18/2019 PREOPERATIVE DIAGNOSIS: Left knee anterior cruciate ligament tear. POSTOPERATIVE DIAGNOSES: 1. Left knee anterior cruciate ligament tear. 2. Left knee medial meniscus tear, anterior. PRIMARY SURGEON: Enrico Jacobson DO. PASSENGER REPRESENTATIVE: JUSTIN Moon. ROLE OF PASSENGER REPRESENTATIVE: Nurse practitioner, JUSTIN Moon, played an essential role in assisting in this case, helping to position the patient, retract structures as needed, as well as suturing and cutting sutures as indicated. Her presence improved patient's safety and decreased operative time. ANESTHESIA: General endotracheal intubation. FLUID: Lactated Ringer's solution. ESTIMATED BLOOD LOSS: 25 mL. COMPLICATION: None. SPECIMEN: None. DISCHARGE DISPOSITION: Stable to PACU. INSTRUMENTATION: [place]. HISTORY AND INDICATIONS FOR THE PROCEDURE: The patient was seen preoperatively in the clinic. She had undergone a skiing accident. Preoperative imaging confirmed the above-mentioned diagnosis. Risks and benefits of the procedure explained to the patient. Informed consent was obtained. DETAILS OF PROCEDURE: The patient was seen preoperatively by myself and the Anesthesia staff in the preoperative holding area where the operative site was marked. She was brought to the operative suite by the Anesthesia staff where general anesthesia was administered. All extremities were found to be well padded. The right leg was placed into a stirrup. The left lower extremity was placed into a leg leone. The left lower extremity had a well-padded tourniquet placed. It was then prepped and draped in a sterile manner. Time-out was called identifying the correct patient, the correct procedure, the correct site, and that antibiotics had been given within appropriate period of time. The left lower extremity was exsanguinated. Tourniquet was raised to 250 mmHg and let down during closure. A lateral portal was first made and then the joint was explored. There was significant difficulty with visualization due to inflamed synovium. I did not see any patellofemoral arthritis present. Both compartments looked good without any chondromalacia, medial and laterally. There was a medial meniscus tear present. I made a medial portal and then debrided this with a shaver and an ablation unit. I then inspected the anterior cruciate ligament. There were two balls of frayed tendon at the base that had been fibrosed down the insertion and the tibia looked good. However, upon further inspection, almost 90% had been torn off from the femoral footprint. At that time, I took a shaver and took off the rest of the femoral footprint of the ACL and then took Metzenbaum's and cut the distal stump. I then used a shaver to remove the remainder of the anterior cruciate ligament. I then used the ablation unit to clear the lateral notch as well as the stump. I then used a bur to perform the notchplasty inside of the lateral condyle. At this point, my assistant director of admissions prepared our graft. This measured 8.5 mm. I used a 7 mm guide for the back wall and then drilled my pin through and out the lateral femur and then used a knife to bring it out through the skin. We had dropped our measuring instrument, so I drilled with a 4.5 reamer. This measured to the outside wall approximately 36 to 38. I marked that for my button on the graft strands and then 25 mm on the graft. I then overdrilled 25 mm with an 8.5 reamer. I then passed my suture, passing suture up through the femur and then tagged it from the lateral portal. I then focussed on tibial prep. I made my incision horizontally about 2-1/2 fingerbreadths distal to the joint line, 3/[address] the medial side of the tibia. I then used a 55 degree reamer and drilled the pin. At that point, I removed my guide and then reamed with an 8.5 mm reamer. I then got pituitaries and grabbed the suture loop and then passed it distally through the tibia. I then attached my graft and then pulled it all the way through the femoral side until the button was through the distal femoral cortex. I then flipped the button and then pulled on it to make sure it was secure. I then brought my graft back up through the femoral tunnel until 25 mm had passed, which I previously marked. I then cycled the knee, and then at that point, I placed my guide pin for my interference screw in the tibia and then screwed in my interference screw. This provided excellent stability with a negative anterior drawer. We then had my assistant director of admissions then close all of my incisions with 3- 0 nylon followed by Betadine-soaked Adaptic, fluffs, and an Tunde wrap. She was then taken to the PACU in stable condition. [id number] / MODL /[id number]
--- NOTE | 2019-09-18 17:22 | PCM.DCSUM1 ---
Discharge Summary - Hospital Course Diagnosis: Stroke: No - Discharge Data Discharge Date: 09/19/19 Discharge Disposition: Home, Self-Care 01 Condition: Good - Referral to Home Health Primary Care Physician: PCP None - Patient Summary/Data Operative Procedure(s) Performed: left acl reconstruction. partial medial menisectomy Complications: none Consults: Consultations 09/18/19 16:57 PT Evaluation and Treatment [CONS] Routine - Patient Instructions Diet: Usual Diet as Tolerated Activity: Apply Ice (Ice left knee), Elevate Extremity, No Strenuous Activities , Rest and Relax Today Activity, Other: WBAT with use of crutches for ambulation Driving: Do Not Drive Driving, Other: no driving while taking narcotic medication Showering/Bathing: May Shower in 3 Days (leave surgical dressing on (the brown SAMREEN bandage) for 72 hours, then may remove bandages, shower and apply new bandages (to cover sutures, to keep them from snagging on clothing).) Wound/Incision Care: Keep Operative Site/Wound Site Clean and Dry, Change Dressing Daily (apply clean bandage over incision sites daily ) Notify Provider of: Fever, Increased Pain, Swelling and Redness, Drainage - Discharge Plan *PRESCRIPTION DRUG MONITORING PROGRAM REVIEWED*: Yes *COPY OF PRESCRIPTION DRUG MONITORING REPORT IN PATIENT SYDNEE: No Prescriptions/Med Rec: oxyCODONE HCl/Acetaminophen [Percocet 5-325 mg Tablet] 1 each PO Q6HR #28 tablet hydrOXYzine pamoate [Vistaril] 25 mg PO Q8H #15 cap Ondansetron HCl [Zofran] 8 mg PO TID #15 tablet Home Medications: Home Meds Pnv No.95/Ferrous Fum/Folic AC [ Vitamin Tablet] 1 tab PO DAILY [History] clomiPHENE citrate [Clomiphene Citrate] 2 tab PO ASDIRECTED 09/12/19 [History] Ondansetron HCl [Zofran] 8 mg PO TID #15 tablet 09/18/19 [Rx] hydrOXYzine pamoate [Vistaril] 25 mg PO Q8H #15 cap 09/18/19 [Rx] oxyCODONE HCl/Acetaminophen [Percocet 5-325 mg Tablet] 1 each PO Q6HR #28 tablet 09/18/19 [Rx] Referrals: Norby,Haley A, [employer] 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 [Nurse Practitioner] - 10/03/19 1:00 am - Discharge Summary/Plan Comment DC Time >30 min.: No - General Info Date of Service: 09/18/19 Functional Status: Reports: Pain Controlled, Tolerating Diet, Ambulating, Urinating - Review of Systems General: Reports: No Symptoms HEENT: Reports: No Symptoms Pulmonary: Reports: No Symptoms Cardiovascular: Reports: No Symptoms Gastrointestinal: Reports: No Symptoms Genitourinary: Reports: No Symptoms Musculoskeletal: Reports: Leg Pain, Joint Pain, Joint Swelling Skin: Reports: No Symptoms Neurological: Reports: No Symptoms Psychiatric: Reports: No Symptoms - Patient Data Vitals - Most Recent: Last Vital Signs Temp 36.9 C 09/18/19 13:58 Pulse 75 09/18/19 15:44 Resp 14 09/18/19 15:44 BP 122/59 L 09/18/19 15:44 Pulse Ox 98 09/18/19 15:44 Weight - Most Recent: 65.771 kg I&O - Last 24 hours: Intake & Output 09/18/19 09/18/19 09/18/19 06:59 14:59 22:59 Intake Total 1400 Balance 1400 Lab Results - Last 24 hrs: Laboratory Results - last 24 hr 09/18/19 Range/Units 08:10 Urine HCG, Qual NEGATIVE (NEGATIVE) Med Orders - Current: Current Medications Celecoxib (Celebrex) 100 mg PO BID [facility] Dexamethasone (Dexamethasone) 10 mg IVPUSH TID [facility] Diazepam (Valium.) 5 mg PO TID PRN PRN Reason: Pain Diphenhydramine HCl (Benadryl) 12.5 mg IVPUSH .PRN PRN PRN Reason: Itching Last Admin: 09/18/19 13:39 Dose: 12.5 mg Docusate Sodium (Colace) 100 mg PO BID [facility] Gabapentin (Neurontin) 300 mg PO TID [facility] Hydromorphone HCl (Dilaudid) 1 mg IVPUSH 15 PRN PRN Reason: Abdominal Pain Clindamycin Phosphate 600 mg/ (Premix) 50 mls @ 92.593 mls/hr IV ONCALL [facility] Last Admin: 09/18/19 08:40 Dose: 92.593 mls/hr Lactated Ringer's (Ringers, Lactated) 1,000 mls @ 100 mls/hr IV ASDIRECTED [facility] Last Admin: 09/18/19 08:35 Dose: 100 mls/hr Acetaminophen 1,000 mg/ Premix 100 mls @ 400 mls/hr IV ONETIME PRN PRN Reason: Pain Last Admin: 09/18/19 11:55 Dose: 400 mls/hr Oxycodone/Acetaminophen (Percocet 325-5 Mg) 1 - 2 tab PO Q4H PRN PRN Reason: Pain Tramadol HCl (Ultram) 50 - 100 mg PO Q4H PRN PRN Reason: Pain Discontinued Medications Bupivacaine HCl/Epinephrine Bitart (Marcaine 0.5%/Epinephrine 1:200,000) Confirm Administered Dose 20 ml .ROUTE .STK-MED ONE Stop: 09/18/19 11:30 Bupivacaine HCl/Epinephrine Bitart (Marcaine 0.25%/Epinephrine 1:200,000) Confirm Administered Dose 20 ml .ROUTE .STK-MED ONE Stop: 09/18/19 14:12 Desflurane (Suprane) Confirm Administered Dose 240 ml .ROUTE .STK-MED ONE Stop: 09/16/19 06:56 Diphenhydramine HCl (Benadryl) Confirm Administered Dose 50 mg .ROUTE .STK-MED ONE Stop: 09/18/19 13:38 Fentanyl (Sublimaze) Confirm Administered Dose 100 mcg .ROUTE .STK-MED ONE Stop: 09/18/19 07:12 Fentanyl (Sublimaze) Confirm Administered Dose 100 mcg .ROUTE .STK-MED ONE Stop: 09/18/19 10:05 Fentanyl (Sublimaze) 50 mcg IVPUSH Q5M PRN PRN Reason: Pain Last Admin: 09/18/19 12:15 Dose: 50 mcg Fentanyl (Sublimaze) Confirm Administered Dose 100 mcg .ROUTE .STK-MED ONE Stop: 09/18/19 10:46 Fentanyl (Sublimaze) Confirm Administered Dose 100 mcg .ROUTE .STK-MED ONE Stop: 09/18/19 11:23 Glycopyrrolate (Robinul) Confirm Administered Dose 0.2 mg .ROUTE .STK-MED ONE Stop: 09/18/19 08:50 Hydromorphone HCl (Dilaudid) Confirm Administered Dose 2 mg .ROUTE .STK-MED ONE Stop: 09/18/19 11:50 Hydromorphone HCl (Dilaudid) 0 mg IVPUSH ONETIME ONE Stop: 09/18/19 12:14 Last Admin: 09/18/19 11:50 Dose: 4 mg Hydromorphone HCl (Dilaudid) 2 mg IVPUSH ONETIME ONE Stop: 09/18/19 12:47 Last Admin: 09/18/19 13:06 Dose: 1 mg Acetaminophen (Ofirmev) Confirm Administered Dose 100 mls @ as directed .ROUTE .STK-MED ONE Stop: 09/18/19 11:54 Ketamine HCl (Ketalar) Confirm Administered Dose 500 mg .ROUTE .STK-MED ONE Stop: 09/18/19 12:42 Ketamine HCl (Ketalar) 25 mg IV ONETIME ONE Stop: 09/18/19 12:46 Last Admin: 09/18/19 12:44 Dose: 25 mg Ketorolac Tromethamine (Toradol) Confirm Administered Dose 30 mg .ROUTE .STK- MED ONE Stop: 09/18/19 07:12 Ketorolac Tromethamine (Toradol) Confirm Administered Dose 30 mg .ROUTE .STK- MED ONE Stop: 09/18/19 12:42 Ketorolac Tromethamine (Toradol) 30 mg IVPUSH ONETIME ONE Stop: 09/18/19 12:47 Last Admin: 09/18/19 12:46 Dose: 30 mg Lidocaine (Xylocaine-Mpf 2%) Confirm Administered Dose 5 ml .ROUTE .STK-MED ONE Stop: 09/18/19 08:51 Lidocaine HCl (Xylocaine 1%) Confirm Administered Dose 20 ml .ROUTE .STK-MED ONE Stop: 09/18/19 09:23 Midazolam HCl (Versed 1 Mg/Ml) Confirm Administered Dose 2 mg .ROUTE .STK-MED ONE Stop: 09/18/19 07:12 Ondansetron HCl (Zofran) Confirm Administered Dose 4 mg .ROUTE .STK-MED ONE Stop: 09/18/19 07:12 Propofol (Diprivan 20 Ml) Confirm Administered Dose 400 mg .ROUTE .STK-MED ONE Stop: 09/18/19 07:12 - Exam General: Reports: Alert, Oriented, Cooperative, Mild Distress HEENT: Reports: Pupils Equal, Pupils Reactive, EOMI, Mucous Membr. Moist/[place] Neck: Reports: Supple, Trachea Midline Lungs: Reports: Normal Respiratory Effort Extremities: Leg Pain, Limited Range of Motion Skin: Reports: Warm, Dry, Intact Wound/Incisions: Reports: Healing Well, Dressing Dry and Intact Neurological: Reports: No New Focal Deficit Psy/Mental Status: Reports: Alert, Normal Affect, Normal Mood Discharge Operative/Procedures - Procedures Performed Operations: left acl reconstruction LP Indication: CSF analysis Arterial Line Indication: hemodynamic monitoring Chest Tube Indication: pneumothorax Thoracentesis Indication: pleural effusion Paracentesis Indication: ascites
[2019-09-18] MEDS ORDERED: Ondansetron 4 MG/2 ML SDV IVPUSH ONE (17:48)
[2019-09-18] MEDS: Promethazine 25 MG Tab PO PRN (20:01)
[2019-09-18] MEDS: Docusate Sodium 100 MG Cap PO SCH (20:52)
[2019-09-18] MEDS: Acetaminophen/oxyCODONE 325-5 MG Tab PO PRN (20:52)
[2019-09-18] MEDS ORDERED: Gabapentin 300 MG Cap PO SCH (22:00)
[2019-09-19] MEDS ORDERED: Lactated Ringers 1,000 ML IV ONE (01:17)
[2019-09-19] MEDS: Acetaminophen/oxyCODONE 325-5 MG Tab PO PRN ×2 (06:50→10:51)
--- NOTE | 2019-09-19 06:58 | PCM48HPAN ---
Post Anesthesia Note - EVALUATION WITHIN 48HRS OF ANESTHETIC Vital Signs in Normal Range: Yes Patient Participated in Evaluation: Yes Respiratory Function Stable: Yes Airway Patent: Yes Cardiovascular Function Stable: Yes Hydration Status Stable: Yes Pain Control Satisfactory: Yes Nausea and Vomiting Control Satisfactory: Yes Mental Status Recovered: Yes Vital Signs: Last Vital Signs Temp 36.5 C 09/19/19 03:56 Pulse 71 09/19/19 06:47 Resp 12 09/19/19 06:47 BP 117/69 09/19/19 06:47 Pulse Ox 96 09/19/19 06:47
[2019-09-19] MEDS: Docusate Sodium 100 MG Cap PO SCH (08:11)
[2019-09-19] MEDS ORDERED: Celecoxib 100 MG Cap PO SCH (09:00)
[2019-09-19] MEDS: Promethazine 25 MG Tab PO PRN (10:51)
[2019-09-19 12:29] VITALS: BP 102/70; PULSE 67
== END 2019-09-19 14:25 | disposition home or self-care (01) ==
LOC: MW.SDS 08:00 → MW.MS 17:42 → MW.SDS 09-19 14:25
PROVIDERS: ATTEND Orthopaedic Surgery
DX: S83.512A Sprain of anterior cruciate ligament of left knee, initial encounter (principal); S83.242A Other tear of medial meniscus, current injury, left knee, initial encounter; Z79.899 Other long term (current) drug therapy; Z88.1 Allergy status to other antibiotic agents; X58.XXXA Exposure to other specified factors, initial encounter; Y93.23 Activity, snow (alpine) (downhill) skiing, snowboarding, sledding, tobogganing and snow tubing
CPT/HCPCS: 29881; 29888; 81025; 97161; 97530; A9270; C1713; C1762; C1776; J0131; J1170; J1200; J1885; J2001; J2250; J2405; J2704; J3010; J3490; J7120; S0077

== ENCOUNTER 2020-05-27 02:24 | Inpatient (IN) | payer BC ==
[2020-05-27] MEDS ORDERED: Misoprostol 200 MCG Tab PO PRN (02:42)
[2020-05-27] MEDS ORDERED: Water For Irrigation,Sterile 1,000 ML Container IRR PRN (02:42)
[2020-05-27] MEDS ORDERED: Misoprostol 25 MCG (1/4 of 100 MCG) Tab PO PRN (02:42)
[2020-05-27] MEDS ORDERED: Methylergonovine 0.2 MG/1 ML Amp IM PRN (02:42)
[2020-05-27] MEDS ORDERED: Ondansetron 4 MG/2 ML SDV IVPUSH PRN (02:42)
[2020-05-27] MEDS ORDERED: Misoprostol 25 MCG (1/4 of 100 MCG) Tab VAG PRN (02:42)
[2020-05-27] MEDS ORDERED: Tranexamic Acid 1,000 MG in Sodium Chloride 0.9% 100 ML IV PRN (02:42)
[2020-05-27] MEDS ORDERED: Sodium Chloride 0.9% 10 ML SDV IV PRN (02:42)
[2020-05-27] MEDS ORDERED: Butorphanol 1 MG/ML SDV IVPUSH PRN (02:42)
[2020-05-27] MEDS ORDERED: Terbutaline 1 MG/ML SDV SUBCUT PRN (02:42)
[2020-05-27] MEDS ORDERED: Sodium Chloride 0.9% 2.5 ML Syringe FLUSH PRN (02:42)
[2020-05-27] MEDS ORDERED: Lidocaine 1% 50 ML MDV INJECT PRN (02:42)
[2020-05-27] MEDS ORDERED: Carboprost Tromethamine 250 MCG/1 ML Amp IM PRN (02:42)
[2020-05-27] MEDS ORDERED: Sodium Chloride 0.9% 10 ML Syringe FLUSH PRN (02:42)
[2020-05-27] MEDS ORDERED: Oxytocin/0.9 % Sodium Chloride 30 UNIT/500 ML BAG IV SCH ×2 (02:45)
[2020-05-27] MEDS: Lactated Ringers 1,000 ML IV SCH ×2 (03:11→10:24)
[2020-05-27] MEDS: Clindamycin Phosphate in D5W 900 MG in Premix Bag 1 BAG IV SCH ×6 (03:12→19:00)
--- NOTE | 2020-05-27 11:14 | PCM.LDHP ---
L&D History of Present Illness - General Date of Service: 05/27/20 Admit Problem/Dx: Patient Status Order with Admit Dx/Problem 05/27/20 02:42 Patient Status [ADT] Routine Admission Diagnosis/Problem Admission Diagnosis/Problem Source of Information: Patient History Limitations: Reports: No Limitations - History of Present Illness Introduction:: 40 yo at 38w4d [place] admitted for IOL complicated by AMA, GBS bacteruia, h/o positive covid test s/p isolation until 1 week ago, and PCN allergy. No current Sxs and no complaints. No Ctx, no bleeding. OB h/o significant for 2.5 yrs ago of 6lbs BG. - Related Data Allergies/Adverse Reactions: Allergies Allergy/AdvReac Type Severity Reaction Status Date / Time amoxicillin Allergy Rash Verified 09/19/19 02:41 Home Medications: Home Meds Pnv No.95/Ferrous Fum/Folic AC [ Vitamin Tablet] 1 tab PO DAILY 09/12/19 [History] clomiPHENE citrate [Clomiphene Citrate] 2 tab PO ASDIRECTED 09/12/19 [History] hydrOXYzine pamoate [Vistaril] 25 mg PO Q8H #15 cap 09/18/19 [Rx] ondansetron HCL [Zofran] 8 mg PO TID #15 tablet 09/18/19 [Rx] oxyCODONE HCl/Acetaminophen [Percocet 5-325 mg Tablet] 1 each PO Q6HR #28 tablet 09/18/19 [Rx] Past Medical History - Past Health History Medical/Surgical History: Denies Medical/Surgical History HEENT History: Reports: Other (See Below) Other HEENT History: wears glasses/contacts, dental implant Cardiovascular History: Reports: None Respiratory History: Reports: None Gastrointestinal History: Reports: None, GERD Genitourinary History: Reports: None 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: Musculoskeletal History: Reports: None Neurological History: Reports: None Psychiatric History: Reports: None Endocrine/Metabolic History: Reports: None Hematologic History: Reports: None Immunologic History: Reports: None Oncologic (Cancer) History: Reports: None Dermatologic History: Reports: None - Infectious Disease History Infectious Disease History: Reports: Chicken Pox - Past Surgical History Head Surgeries/Procedures: Reports: None HEENT Surgical History: Reports: None Cardiovascular Surgical History: Reports: None Respiratory Surgical History: Reports: None GI Surgical History: Reports: None Female Surgical History: Reports: None Endocrine Surgical History: Reports: None Neurological Surgical History: Reports: None Musculoskeletal Surgical History: Reports: None Oncologic Surgical History: Reports: None Dermatological Surgical History: Reports: None Social & Family History - Family History Family Medical History: Noncontributory - Tobacco Use Tobacco Use Status *Q: Light Tobacco User Years of Tobacco use: 15 Packs/Tins Daily: 1 - Caffeine Use Caffeine Use: Reports: Coffee - Recreational Drug Use Recreational Drug Use: No H&P Review of Systems - Review of Systems: Review Of Systems: See Below General: Reports: No Symptoms HEENT: Reports: No Symptoms Pulmonary: Reports: No Symptoms Cardiovascular: Reports: No Symptoms Gastrointestinal: Reports: No Symptoms Genitourinary: Reports: No Symptoms Musculoskeletal: Reports: No Symptoms Skin: Reports: No Symptoms Psychiatric: Reports: No Symptoms Neurological: Reports: No Symptoms Hematologic/Lymphatic: Reports: No Symptoms Immunologic: Reports: No Symptoms L&D Exam - Exam Exam: See Below - Vital Signs Weight: 74.843 kg - OB Specific Contraction Intensity: Mild to Moderate Movement: Active Heart Tones: Present Heart Rate (FHR) Variability: Moderate (6-25 bmp) Presentation: Vertex - Brewer Score Brewer Score Cervix Position: Midposition Brewer Score Consistency: Medium Brewer Score Dilation: 1-2 cm - Exam General: Alert, Oriented Neck: Supple Lungs: Normal Respiratory Effort Cardiovascular: Regular Rate GI/Abdominal Exam: Soft, Non-Tender Back Exam: Normal Inspection Extremities: Normal Inspection Skin: Warm, Intact Psychiatric: Alert, Normal Affect, Normal Mood - Patient Data Lab Results Last 24 hrs: Laboratory Results - last 24 hr 05/27/20 05/27/20 Range/Units 02:35 02:35 WBC 7.37 (4.0-11.0) K/uL RBC 4.14 L (4.30-5.90) M/uL Hgb 13.3 (12.0-16.0) g/dL Hct 39.2 (36.0-46.0) % MCV 94.7 (80.0-98.0) fL MCH 32.1 H (27.0-32.0) pg MCHC 33.9 (31.0-37.0) g/dL RDW Std Deviation 43.1 (28.0-62.0) fl RDW Coeff of Laura 13 (11.0-15.0) % Plt Count 284 (150-400) K/uL MPV 11.60 (7.40-12.00) fL Nucleated RBC % 0.0 /100WBC Nucleated RBCs # 0 K/uL Blood Type A POSITIVE Antibody Screen NEGATIVE Result Diagrams: 05/27/20 02:35 - Problem List (1) Encounter for induction of labor SNOMED Code(s): 592558276 ICD Code: Z34.90 - ENCNTR FOR SUPRVSN OF NORMAL , UNSP, UNSP TRIMESTER Status: Acute Priority: High Current Visit: Yes (2) Normal intrauterine in third trimester SNOMED Code(s): 49190866, 99358692 ICD Code: Z34.93 - ENCNTR FOR SUPRVSN OF NORMAL PREG, UNSP, THIRD TRIMESTER Status: Acute Priority: Medium Current Visit: Yes (3) AMA (advanced maternal age) primigravida 35+ SNOMED Code(s): 52625622 ICD Code: O09.519 - SUPERVISION OF ELDERLY PRIMIGRAVIDA, UNSPECIFIED TRIMESTER Status: Acute Priority: High Current Visit: Yes Qualifiers: Trimester: third trimester Qualified Code(s): O09.513 - Supervision of elderly primigravida, third trimester Problem List Initiated/Reviewed/Updated: Yes Orders Last 24hrs: 40 yo at 38w4d [place] admitted for IOL complicated by AMA, GBS bacteriuia, h/o positive covid test s/p isolation until 1 week ago, and PCN allergy. S/P 1 round of cytotec at 3am. Patient prem irregularly Q1-2 mns. Cat 1 tracing. Will continue with expectant management. GBS bacteriuia in setting of PCN allergy: S/P 1 dose of Clindamycin Active Orders 24 hr Category Date Time Status Patient Status [ADT] Routine ADT 05/27/20 02:42 Active Bedrest Bathroom Privileges [RC] ASDIRECTED Care 05/27/20 02:42 Active Communication Order [RC] ASDIRECTED Care 05/27/20 02:42 Active Communication Order [RC] ASDIRECTED Care 05/27/20 02:42 Active Communication Order [RC] ASDIRECTED Care 05/27/20 02:42 Active Heart Tones [RC] CONTINUOUS Care 05/27/20 02:42 Active Non Stress Test [RC] PER UNIT ROUTINE Care 05/27/20 02:42 Active May Shower [RC] ASDIRECTED Care 05/27/20 02:42 Active Notify Provider [RC] PRN Care 05/27/20 02:42 Active Notify Provider [RC] PRN Care 05/27/20 02:42 Active Notify Provider [RC] PRN Care 05/27/20 02:42 Active Notify Provider [RC] STAT Care 05/27/20 02:42 Active Oxygen Therapy [RC] ASDIRECTED Care 05/27/20 02:42 Active Up ad Oly [RC] ASDIRECTED Care 05/27/20 02:42 Active Vaginal Exam [RC] PRN Care 05/27/20 02:42 Active Vaginal Exam [RC] PRN Care 05/27/20 02:42 Active Vital Signs [RC] PER UNIT ROUTINE Care 05/27/20 02:42 Active Vital Signs [RC] PER UNIT ROUTINE Care 05/27/20 02:42 Active Regular Diet [DIET] Diet 05/27/20 Breakfast Active RPR (SYPHILIS SERO) W/ RFLX [REF] Routine Lab 05/27/20 02:35 Received Butorphanol [Stadol] Med 05/27/20 02:42 Active 1 mg IVPUSH Q1H PRN Carboprost Tromethamine [Hemabate DS] Med 05/27/20 02:42 Active 250 mcg IM ASDIRECTED PRN Clindamycin Phosphate in D5W [Cleocin in D5W] 900 mg Med 05/27/20 03:00 Active Premix Bag 1 bag IV Q8H Lactated Ringers [Ringers, Lactated] 1,000 ml Med 05/27/20 02:45 Active IV ASDIRECTED Lidocaine 1% [Xylocaine 1%] Med 05/27/20 02:42 Active 50 ml INJECT ONETIME PRN Methylergonovine [Methergine] Med 05/27/20 02:42 Active 0.2 mg IM ASDIRECTED PRN Ondansetron [Zofran] Med 05/27/20 02:42 Active 4 mg IVPUSH Q6H PRN Oxytocin/0.9 % Sodium Chloride [Oxytocin 30 Unit/500 ML Med 05/27/20 02:45 Active -NS] 30 unit in 500 ml IV TITRATE Oxytocin/0.9 % Sodium Chloride [Oxytocin 30 Unit/500 ML Med 05/27/20 02:45 Active -NS] 30 unit in 500 ml IV TITRATE Sodium Chloride 0.9% [Normal Saline] Med 05/27/20 02:42 Active 10 ml IV ASDIRECTED PRN Sodium Chloride 0.9% [Saline Flush] Med 05/27/20 02:42 Active 10 ml FLUSH ASDIRECTED PRN Sodium Chloride 0.9% [Saline Flush] Med 05/27/20 02:42 Active 2.5 ml FLUSH ASDIRECTED PRN Terbutaline [Brethine] Med 05/27/20 02:42 Active 0.25 mg SUBCUT ASDIRECTED PRN Tranexamic Acid [Cyklokapron] 1,000 mg Med 05/27/20 02:42 Active Sodium Chloride 0.9% [Normal Saline] 100 ml IV ONETIME Water For Irrigation,Sterile [Sterile Water for Med 05/27/20 02:42 Active Irrigation] 1,000 ml IRR ASDIRECTED PRN miSOPROStoL [Cytotec] Med 05/27/20 02:42 Active 200 mcg PO ONETIME PRN miSOPROStoL [Cytotec] Med 05/27/20 02:42 Active 25 mcg PO Q4H PRN miSOPROStoL [Cytotec] Med 05/27/20 02:42 Active 25 mcg VAG Q4H PRN Scalp Electrode [WOMSER] Per Unit Routine Oth 05/27/20 02:42 Ordered Medication Administration Instruction [OM.PC] Q3H Oth 05/27/20 02:45 Ordered Peripheral IV Insertion Adult [OM.PC] Routine Oth 05/27/20 02:42 Ordered Resuscitation Status Routine Resus Stat 05/27/20 02:42 Ordered Medication Orders Butorphanol Tartrate (Stadol) 1 mg IVPUSH Q1H PRN PRN Reason: Pain Carboprost Tromethamine (Hemabate Ds) 250 mcg IM ASDIRECTED PRN PRN Reason: Post Hemorrhage Oxytocin/Sodium Chloride (Oxytocin 30 Unit/500 Ml-Ns) 30 unit in 500 mls @ 999 mls/hr IV TITRATE [facility] Tranexamic Acid 1,000 mg/ (Sodium Chloride) 110 mls @ 660 mls/hr IV ONETIME PRN PRN Reason: Bleeding Oxytocin/Sodium Chloride (Oxytocin 30 Unit/500 Ml-Ns) 30 unit in 500 mls @ 2 mls/hr IV TITRATE [facility]; Protocol Clindamycin Phosphate 900 mg/ (Premix) 50 mls @ 100 mls/hr IV Q8H [facility] Last Admin: 05/27/20 03:12 Dose: 100 mls/hr Documented by: ZEESHAN Lactated Ringer's (Ringers, Lactated) 1,000 mls @ 150 mls/hr IV ASDIRECTED [facility] Last Admin: 05/27/20 10:24 Dose: 150 mls/hr Documented by: Infusion: 05/27/20 09:52 Dose: 150 mls/hr Documented by: Admin: 05/27/20 03:11 Dose: 150 mls/hr Documented by: ZEESHAN Lidocaine HCl (Xylocaine 1%) 50 ml INJECT ONETIME PRN PRN Reason: Laceration repair Methylergonovine Maleate (Methergine) 0.2 mg IM ASDIRECTED PRN PRN Reason: Post Hemorrhage Misoprostol (Cytotec) 200 mcg PO ONETIME PRN PRN Reason: Post Hemorrhage Misoprostol (Cytotec) 25 mcg VAG Q4H PRN PRN Reason: Cervical Ripening Last Admin: 05/27/20 03:17 Dose: 25 mcg Documented by: ZEESHAN Misoprostol (Cytotec) 25 mcg PO Q4H PRN PRN Reason: Cervical Ripening Last Admin: 05/27/20 03:18 Dose: 25 mcg Documented by: ZEESHAN Ondansetron HCl (Zofran) 4 mg IVPUSH Q6H PRN PRN Reason: Nausea/Vomiting Sodium Chloride (Saline Flush) 10 ml FLUSH ASDIRECTED PRN PRN Reason: Keep Vein Open Sodium Chloride (Saline Flush) 2.5 ml FLUSH ASDIRECTED PRN PRN Reason: Keep Vein Open Sodium Chloride (Normal Saline) 10 ml IV ASDIRECTED PRN PRN Reason: IV Use Sterile Water (Sterile Water For Irrigation) 1,000 ml IRR ASDIRECTED PRN PRN Reason: delivery Terbutaline Sulfate (Brethine) 0.25 mg SUBCUT ASDIRECTED PRN PRN Reason: Tacysystole
--- NOTE | 2020-05-27 16:21 | PCM.PNLD ---
Labor Progress Note - VS & Meds Active Medications: Current Medications Butorphanol Tartrate (Stadol) 1 mg IVPUSH Q1H PRN PRN Reason: Pain Carboprost Tromethamine (Hemabate Ds) 250 mcg IM ASDIRECTED PRN PRN Reason: Post Hemorrhage Oxytocin/Sodium Chloride (Oxytocin 30 Unit/500 Ml-Ns) 30 unit in 500 mls @ 999 mls/hr IV TITRATE [facility] Tranexamic Acid 1,000 mg/ (Sodium Chloride) 110 mls @ 660 mls/hr IV ONETIME PRN PRN Reason: Bleeding Oxytocin/Sodium Chloride (Oxytocin 30 Unit/500 Ml-Ns) 30 unit in 500 mls @ 2 mls/hr IV TITRATE [facility]; Protocol Last Titration: 05/27/20 15:21 Dose: 8 munits/min, 8 mls/hr Documented by: Clindamycin Phosphate 900 mg/ (Premix) 50 mls @ 100 mls/hr IV Q8H [facility] Last Admin: 05/27/20 11:19 Dose: 100 mls/hr Documented by: Lactated Ringer's (Ringers, Lactated) 1,000 mls @ 150 mls/hr IV ASDIRECTED [facility] Last Admin: 05/27/20 10:24 Dose: 150 mls/hr Documented by: Lidocaine HCl (Xylocaine 1%) 50 ml INJECT ONETIME PRN PRN Reason: Laceration repair Methylergonovine Maleate (Methergine) 0.2 mg IM ASDIRECTED PRN PRN Reason: Post Hemorrhage Misoprostol (Cytotec) 200 mcg PO ONETIME PRN PRN Reason: Post Hemorrhage Misoprostol (Cytotec) 25 mcg VAG Q4H PRN PRN Reason: Cervical Ripening Last Admin: 05/27/20 03:17 Dose: 25 mcg Documented by: Misoprostol (Cytotec) 25 mcg PO Q4H PRN PRN Reason: Cervical Ripening Last Admin: 05/27/20 03:18 Dose: 25 mcg Documented by: Ondansetron HCl (Zofran) 4 mg IVPUSH Q6H PRN PRN Reason: Nausea/Vomiting Sodium Chloride (Saline Flush) 10 ml FLUSH ASDIRECTED PRN PRN Reason: Keep Vein Open Sodium Chloride (Saline Flush) 2.5 ml FLUSH ASDIRECTED PRN PRN Reason: Keep Vein Open Sodium Chloride (Normal Saline) 10 ml IV ASDIRECTED PRN PRN Reason: IV Use Sterile Water (Sterile Water For Irrigation) 1,000 ml IRR ASDIRECTED PRN PRN Reason: delivery Terbutaline Sulfate (Brethine) 0.25 mg SUBCUT ASDIRECTED PRN PRN Reason: Tacysystole - Uterine Contractions Uterine Monitoring Mode: External [place] Contraction Intensity: Mild to Moderate - Monitoring Monitor Mode: Doppler/Auscultation Heart Rate (FHR) Variability: Moderate (6-25 bmp) Accelerations: Present, 15x15 Decelerations: None Strip Review: Category I - Vaginal Exam Dilation (cm): 4 Effacement (Percent): 80 Station: -2 Cervical Position: Posterior Sterile Vaginal Exam Performed By: Dr Anaya - Labor Progress (Free Text) Labor Progress: LATE ENTRY: 40yo @ 38w4d [place] being induced for AMA. S/p Cytotec round x1 at 3am. Has made some change, but now contractions getting farther apart. Will start pitocin per protocol +GBS in setting of PCN allergy s/p clindamycin x2dose. Epidural as needed. Will reassess in 4 hours or earlier PRN.
[2020-05-27] MEDS ORDERED: fentaNYL 100 MCG/2 ML SDV ONE (17:01)
[2020-05-27] MEDS ORDERED: Ropivacaine HCl/PF 100 ML ONE (17:01)
[2020-05-27] MEDS ORDERED: Ropivacaine 0.2% PF 2 MG/ML 20 ML SDV ONE (17:01)
--- NOTE | 2020-05-27 17:40 | PCM.PREANE ---
Preanesthetic Assessment - Procedure Proposed Procedure: WILLY - Anesthesia/Transfusion/Family Hx Anesthesia History: Prior Anesthesia Without Reaction Family History of Anesthesia Reaction: No Transfusion History: No Prior Transfusion(s) Intubation History: Unknown - Review of Systems General: No Symptoms Pulmonary: Other (+ smoking Hx) Cardiovascular: No Symptoms Gastrointestinal: Other (Reflux) Neurological: No Symptoms Other: Reports: Anxiety - Physical Assessment NPO Status Date: 05/27/20 NPO Status Time: 17:37 (Clear liquids) Height: 1.63 m Weight: 74.843 kg ASA Class: 2 Mental Status: Alert & Oriented x3 Airway Class: Mallampati = 1 Dentition: Reports: Normal Dentition, Implants Thyro-Mental Finger Breadths: 3 Mouth Opening Finger Breadths: 3 ROM/Head Extension: Full Lungs: Clear to Auscultation Cardiovascular: Regular Rate (Discussed. ? Answered. Some issues with elevated BP @ times. Permit signed. Acceptable candidate. 4-5 cm. Active labor. On Pitocin.) - Lab Values: Laboratory Last Values WBC 7.37 K/uL (4.0-11.0) 05/27/20 02:35 RBC 4.14 M/uL (4.30-5.90) L 05/27/20 02:35 Hgb 13.3 g/dL (12.0-16.0) 05/27/20 02:35 Hct 39.2 % (36.0-46.0) 05/27/20 02:35 MCV 94.7 fL (80.0-98.0) 05/27/20 02:35 MCH 32.1 pg (27.0-32.0) H 05/27/20 02:35 MCHC 33.9 g/dL (31.0-37.0) 05/27/20 02:35 RDW Std Deviation 43.1 fl (28.0-62.0) 05/27/20 02:35 RDW Coeff of Laura 13 % (11.0-15.0) 05/27/20 02:35 Plt Count 284 K/uL (150-400) 05/27/20 02:35 MPV 11.60 fL (7.40-12.00) 05/27/20 02:35 Nucleated RBC % 0.0 /100WBC 05/27/20 02:35 Nucleated RBCs # 0 K/uL 05/27/20 02:35 Blood Type A POSITIVE 05/27/20 02:35 Antibody Screen NEGATIVE 05/27/20 02:35 - Allergies Allergies/Adverse Reactions: Allergies Allergy/AdvReac Type Severity Reaction Status Date / Time amoxicillin Allergy Rash Verified 09/19/19 02:41 PreAnesthesia Questionnaire - Past Health History Medical/Surgical History: Denies Medical/Surgical History HEENT History: Reports: Other (See Below) Other HEENT History: wears glasses/contacts, dental implant Cardiovascular History: Reports: None Respiratory History: Reports: None Gastrointestinal History: Reports: None, GERD Genitourinary History: Reports: None TISSUE COORDINATOR 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: Reports: Musculoskeletal History: Reports: None Neurological History: Reports: None Psychiatric History: Reports: None Endocrine/Metabolic History: Reports: None Hematologic History: Reports: None Immunologic History: Reports: None Oncologic (Cancer) History: Reports: None Dermatologic History: Reports: None - Infectious Disease History Infectious Disease History: Reports: Chicken Pox - Past Surgical History Head Surgeries/Procedures: Reports: None HEENT Surgical History: Reports: None Cardiovascular Surgical History: Reports: None Respiratory Surgical History: Reports: None GI Surgical History: Reports: None Female Surgical History: Reports: None Endocrine Surgical History: Reports: None Neurological Surgical History: Reports: None Musculoskeletal Surgical History: Reports: None Oncologic Surgical History: Reports: None Dermatological Surgical History: Reports: None - SUBSTANCE USE Tobacco Use Status *Q: Light Tobacco User Tobacco Use Within Last Twelve Months: Cigarettes Recreational Drug Use History: No - HOME MEDS Home Medications: Home Meds Pnv No.95/Ferrous Fum/Folic AC [ Vitamin Tablet] 1 tab PO DAILY 09/12/19 [History] clomiPHENE citrate [Clomiphene Citrate] 2 tab PO ASDIRECTED 09/12/19 [History] hydrOXYzine pamoate [Vistaril] 25 mg PO Q8H #15 cap 09/18/19 [Rx] ondansetron HCL [Zofran] 8 mg PO TID #15 tablet 09/18/19 [Rx] oxyCODONE HCl/Acetaminophen [Percocet 5-325 mg Tablet] 1 each PO Q6HR #28 tablet 09/18/19 [Rx] - CURRENT (IN HOUSE) MEDS Current Meds: Current Medications Butorphanol Tartrate (Stadol) 1 mg IVPUSH Q1H PRN PRN Reason: Pain Carboprost Tromethamine (Hemabate Ds) 250 mcg IM ASDIRECTED PRN PRN Reason: Post Hemorrhage Oxytocin/Sodium Chloride (Oxytocin 30 Unit/500 Ml-Ns) 30 unit in 500 mls @ 999 mls/hr IV TITRATE SITA Tranexamic Acid 1,000 mg/ (Sodium Chloride) 110 mls @ 660 mls/hr IV ONETIME PRN PRN Reason: Bleeding Oxytocin/Sodium Chloride (Oxytocin 30 Unit/500 Ml-Ns) 30 unit in 500 mls @ 2 mls/hr IV TITRATE [facility]; Protocol Last Titration: 05/27/20 16:30 Dose: 10 munits/min, 10 mls/hr Documented by: Clindamycin Phosphate 900 mg/ (Premix) 50 mls @ 100 mls/hr IV Q8H [facility] Last Admin: 05/27/20 11:19 Dose: 100 mls/hr Documented by: Lactated Ringer's (Ringers, Lactated) 1,000 mls @ 150 mls/hr IV ASDIRECTED [facility] Last Admin: 05/27/20 10:24 Dose: 150 mls/hr Documented by: Lidocaine HCl (Xylocaine 1%) 50 ml INJECT ONETIME PRN PRN Reason: Laceration repair Methylergonovine Maleate (Methergine) 0.2 mg IM ASDIRECTED PRN PRN Reason: Post Hemorrhage Misoprostol (Cytotec) 200 mcg PO ONETIME PRN PRN Reason: Post Hemorrhage Misoprostol (Cytotec) 25 mcg VAG Q4H PRN PRN Reason: Cervical Ripening Last Admin: 05/27/20 03:17 Dose: 25 mcg Documented by: Misoprostol (Cytotec) 25 mcg PO Q4H PRN PRN Reason: Cervical Ripening Last Admin: 05/27/20 03:18 Dose: 25 mcg Documented by: Ondansetron HCl (Zofran) 4 mg IVPUSH Q6H PRN PRN Reason: Nausea/Vomiting Sodium Chloride (Saline Flush) 10 ml FLUSH ASDIRECTED PRN PRN Reason: Keep Vein Open Sodium Chloride (Saline Flush) 2.5 ml FLUSH ASDIRECTED PRN PRN Reason: Keep Vein Open Sodium Chloride (Normal Saline) 10 ml IV ASDIRECTED PRN PRN Reason: IV Use Sterile Water (Sterile Water For Irrigation) 1,000 ml IRR ASDIRECTED PRN PRN Reason: delivery Terbutaline Sulfate (Brethine) 0.25 mg SUBCUT ASDIRECTED PRN PRN Reason: Tacysystole Discontinued Medications Fentanyl (Sublimaze) Confirm Administered Dose 100 mcg .ROUTE .STK-MED ONE Stop: 05/27/20 17:02 Ropivacaine (Naropin 0.2%) Confirm Administered Dose 100 mls @ as directed .ROUTE .STK-MED ONE Stop: 05/27/20 17:02 Ropivacaine (Naropin 0.2%) Confirm Administered Dose 20 ml .ROUTE .STK-MED ONE Stop: 05/27/20 17:02
--- NOTE | 2020-05-27 20:28 | PCM.DEL ---
L & D Note - General Info Date of Service: 05/27/20 Mother's Due Date: 06/06/20 - Delivery Note Labor: Augmented by ARM, Augmented by Oxytocin Cervical Ripening Method: Misoprostil Delivery Outcome: Livebirth Delivery Method: Spontaneous Vaginal Delivery-Single Presentation: Vertex Nuchal Cord: Present, Reduced Anesthesia Type: Epidural Amniotic Fluid Description: Clear Episiotomy Type: None Laceration: 1st Degree, Perineal, Vaginal Suture type: Vicryl Suture size: 3-0 Placenta: Intact, Spontaneous Cord: 3 Vessels Estimated Blood Loss: 400 Resuscitation Needed: Yes : Suctioned, Cathether, Stimulated Score 1 min: 7 Score 5 min: 8 Delivery Comments (Free Text/Narrative):: 40yo G4 now P2022 S/P following induction with 1 round of cytotec then pitocin. history also complicated by GBS bacteruia in setting of PCN allergy, S/P intrapartum clindamycin x2 doses. of a live female, [id number] and Apgars 7/8. Delivered PRETTY. Presence of nuchal cord x1 which avulsed during attempt to reduce. Remainder of the baby was rapidly delivered within seconds, and cord proximal to baby was held shut and immediately clamped. Mouth was bulb suctioned and Baby was handed to nurse, for resuscitation. Placenta delivered spontaneously, intact. Fundus firm, minimal bleeding. Placenta appeared intact with 3 vessel cord. Perineum and vagina inspected small 1st degree perineal laceration repaired with 3-0 chromic suture in the usual fashion. EBL 400cc. Hemostasis. Patient tolerated procedure well, now recovering in LDR with baby, performing skin to skin. - General Info Date of Service: 05/27/20 Admission Dx/Problem (Free Text): Patient Status Order with Admit Dx/Problem 05/27/20 02:42 Patient Status [ADT] Routine Admission Diagnosis/Problem Admission Diagnosis/Problem - Patient Data Weight - Most Recent: 74.843 kg Lab Results Last 24 Hours: Laboratory Results - last 24 hr 05/27/20 05/27/20 Range/Units 02:35 02:35 WBC 7.37 (4.0-11.0) K/uL RBC 4.14 L (4.30-5.90) M/uL Hgb 13.3 (12.0-16.0) g/dL Hct 39.2 (36.0-46.0) % MCV 94.7 (80.0-98.0) fL MCH 32.1 H (27.0-32.0) pg MCHC 33.9 (31.0-37.0) g/dL RDW Std Deviation 43.1 (28.0-62.0) fl RDW Coeff of Laura 13 (11.0-15.0) % Plt Count 284 (150-400) K/uL MPV 11.60 (7.40-12.00) fL Nucleated RBC % 0.0 /100WBC Nucleated RBCs # 0 K/uL Blood Type A POSITIVE Antibody Screen NEGATIVE Med Orders - Current: Current Medications Butorphanol Tartrate (Stadol) 1 mg IVPUSH Q1H PRN PRN Reason: Pain Carboprost Tromethamine (Hemabate Ds) 250 mcg IM ASDIRECTED PRN PRN Reason: Post Hemorrhage Oxytocin/Sodium Chloride (Oxytocin 30 Unit/500 Ml-Ns) 30 unit in 500 mls @ 999 mls/hr IV TITRATE SITA Tranexamic Acid 1,000 mg/ (Sodium Chloride) 110 mls @ 660 mls/hr IV ONETIME PRN PRN Reason: Bleeding Oxytocin/Sodium Chloride (Oxytocin 30 Unit/500 Ml-Ns) 30 unit in 500 mls @ 2 mls/hr IV TITRATE SITA; Protocol Last Titration: 05/27/20 16:30 Dose: 10 munits/min, 10 mls/hr Documented by: Clindamycin Phosphate 900 mg/ (Premix) 50 mls @ 100 mls/hr IV Q8H SITA Last Admin: 05/27/20 19:00 Dose: 100 mls/hr Documented by: Lactated Ringer's (Ringers, Lactated) 1,000 mls @ 150 mls/hr IV ASDIRECTED SITA Last Admin: 05/27/20 10:24 Dose: 150 mls/hr Documented by: Lidocaine HCl (Xylocaine 1%) 50 ml INJECT ONETIME PRN PRN Reason: Laceration repair Methylergonovine Maleate (Methergine) 0.2 mg IM ASDIRECTED PRN PRN Reason: Post Hemorrhage Misoprostol (Cytotec) 200 mcg PO ONETIME PRN PRN Reason: Post Hemorrhage Misoprostol (Cytotec) 25 mcg VAG Q4H PRN PRN Reason: Cervical Ripening Last Admin: 05/27/20 03:17 Dose: 25 mcg Documented by: Misoprostol (Cytotec) 25 mcg PO Q4H PRN PRN Reason: Cervical Ripening Last Admin: 05/27/20 03:18 Dose: 25 mcg Documented by: Ondansetron HCl (Zofran) 4 mg IVPUSH Q6H PRN PRN Reason: Nausea/Vomiting Sodium Chloride (Saline Flush) 10 ml FLUSH ASDIRECTED PRN PRN Reason: Keep Vein Open Sodium Chloride (Saline Flush) 2.5 ml FLUSH ASDIRECTED PRN PRN Reason: Keep Vein Open Sodium Chloride (Normal Saline) 10 ml IV ASDIRECTED PRN PRN Reason: IV Use Sterile Water (Sterile Water For Irrigation) 1,000 ml IRR ASDIRECTED PRN PRN Reason: delivery Terbutaline Sulfate (Brethine) 0.25 mg SUBCUT ASDIRECTED PRN PRN Reason: Tacysystole Discontinued Medications Fentanyl (Sublimaze) Confirm Administered Dose 100 mcg .ROUTE .STK-MED ONE Stop: 05/27/20 17:02 Ropivacaine (Naropin 0.2%) Confirm Administered Dose 100 mls @ as directed .ROUTE .STK-MED ONE Stop: 05/27/20 17:02 Ropivacaine (Naropin 0.2%) Confirm Administered Dose 20 ml .ROUTE .STK-MED ONE Stop: 05/27/20 17:02 - Exam General: Alert, Oriented Psy/Mental Status: Alert, Normal Affect, Normal Mood - Problem List & Annotations (1) Encounter for induction of labor SNOMED Code(s): 352648566 Code(s): Z34.90 - ENCNTR FOR SUPRVSN OF NORMAL , UNSP, UNSP TRIMESTER Status: Acute Priority: High Current Visit: Yes (2) Normal intrauterine in third trimester SNOMED Code(s): 26186277, 06216669 Code(s): Z34.93 - ENCNTR FOR SUPRVSN OF NORMAL PREG, UNSP, THIRD TRIMESTER Status: Acute Priority: Medium Current Visit: Yes (3) AMA (advanced maternal age) primigravida 35+ SNOMED Code(s): 87139724 Code(s): O09.519 - SUPERVISION OF ELDERLY PRIMIGRAVIDA, UNSPECIFIED TRIMESTER Status: Acute Priority: High Current Visit: Yes Qualifiers: Trimester: third trimester Qualified Code(s): O09.513 - Supervision of elderly primigravida, third trimester (4) (spontaneous vaginal delivery) SNOMED Code(s): 910708280 Code(s): O80 - ENCOUNTER FOR FULL-TERM UNCOMPLICATED DELIVERY Status: Acute Priority: High Current Visit: Yes - Problem List Review Problem List Initiated/Reviewed/Updated: Yes - Plan Plan:: 40yo G4 now P2022 S/P following induction with 1 round of cytotec then pitocin. history also complicated by GBS bacteruia in setting of PCN allergy, S/P intrapartum clindamycin x2 doses. of a live female, [id number] and Apgars 7/8. small 1st degree perineal laceration repaired with 3-0 chromic suture in the usual fashion. EBL 400cc. Hemostasis. Patient tolerated procedure well, now recovering in LDR with baby, performing skin to skin. Routine care.
[2020-05-27] MEDS ORDERED: Bisacodyl 10 MG Supp RECTAL PRN (20:47)
[2020-05-27] MEDS ORDERED: Witch Hazel Medicated Pads 40/Jar TOP PRN (20:47)
[2020-05-27] MEDS ORDERED: Acetaminophen 500 MG Tab PO PRN (20:47)
[2020-05-27] MEDS ORDERED: Ibuprofen 400 MG Tab PO PRN (20:47)
[2020-05-27] MEDS ORDERED: Benzocaine/Menthol 20%-0.5% Spray 78 GM Cannister TOP PRN (20:47)
[2020-05-27] MEDS: Ibuprofen 800 MG Tab PO PRN (21:53)
[2020-05-27] MEDS: Docusate Sodium 100 MG Cap PO PRN (21:54)
[2020-05-28] MEDS: Acetaminophen 500 MG Tab PO PRN ×2 (02:41→08:25)
[2020-05-28] MEDS: Ibuprofen 800 MG Tab PO PRN ×3 (05:14→22:09)
--- NOTE | 2020-05-28 07:44 | PCM48HPAN ---
Post Anesthesia Note - EVALUATION WITHIN 48HRS OF ANESTHETIC Vital Signs in Normal Range: Yes Patient Participated in Evaluation: Yes Respiratory Function Stable: Yes Airway Patent: Yes Cardiovascular Function Stable: Yes Hydration Status Stable: Yes Pain Control Satisfactory: Yes Nausea and Vomiting Control Satisfactory: Yes Mental Status Recovered: Yes Vital Signs: Last Vital Signs Temp 36.4 C 05/28/20 05:27 Pulse 78 05/28/20 05:27 Resp 16 05/28/20 05:27 BP 109/67 05/28/20 05:27 Pulse Ox 97 05/28/20 05:27
[2020-05-28] MEDS: Prenatal Multivitamin and Multimineral with Iron Tab PO SCH (09:37)
--- NOTE | 2020-05-28 10:05 | PCM.PNPP ---
- General Info Date of Service: 05/28/20 Admission Dx/Problem (Free Text): Patient Status Order with Admit Dx/Problem 05/27/20 02:42 Patient Status [ADT] Routine Admission Diagnosis/Problem Admission Diagnosis/Problem Clarisse is a 40 yo PPD0 S/P uncomplicated to term NBF. A pos, RNI, GBS pos with adequate clindamycin prophylaxis prior to . Patient has no complaints or concerns at this time. Patient is exclusively well, resting comfortably in bed with in bassinet Patient reports she is eating, voiding, ambulating independently and without difficulty. Patient denies any problems or concerns at this time except mild-moderate intermittent uterine cramping relieved with Tylenol and Ibuprofen. Patient reports moderate vaginal bleeding with no recent clots. Patient verbalizes her readiness to be discharged home this evening. Functional Status: Reports: Pain Controlled - Review of Systems General: Reports: No Symptoms HEENT: Reports: No Symptoms Pulmonary: Reports: No Symptoms Cardiovascular: Reports: No Symptoms Gastrointestinal: Reports: No Symptoms Genitourinary: Reports: No Symptoms Musculoskeletal: Reports: No Symptoms Skin: Reports: No Symptoms Neurological: Reports: No Symptoms Psychiatric: Reports: No Symptoms - General Info Date of Service: 05/28/20 - Patient Data Vital Signs - Most Recent: Last Vital Signs Temp 98 F 05/28/20 08:00 Pulse 64 05/28/20 08:00 Resp 17 05/28/20 08:00 BP 111/70 05/28/20 08:00 Pulse Ox 97 05/28/20 08:00 Weight - Most Recent: 165 lb Lab Results - Last 24 Hours: Laboratory Results - last 24 hr 05/27/20 05/28/20 Range/Units 19:50 05:42 Hgb 12.3 (12.0-16.0) g/dL Hct 36.0 (36.0-46.0) % Cord ABG pH 7.276 (7.18-7.38) Cord ABG Base Excess -5 (-10--2) Med Orders - Current: Current Medications Acetaminophen (Tylenol Extra Strength) 500 mg PO Q4H PRN PRN Reason: Pain Acetaminophen (Tylenol Extra Strength) 1,000 mg PO Q4H PRN PRN Reason: Pain Last Admin: 05/28/20 08:25 Dose: 1,000 mg Documented by: Benzocaine/Menthol (Dermoplast Pain Relief 20%-0.5% [place]) 0 gm TOP ASDIRECTED PRN PRN Reason: Perineal Comfort Measure Last Admin: 05/27/20 21:55 Dose: 1 can Documented by: Bisacodyl (Dulcolax) 10 mg RECTAL ONETIME PRN PRN Reason: Constipation Butorphanol Tartrate (Stadol) 1 mg IVPUSH Q1H PRN PRN Reason: Pain Carboprost Tromethamine (Hemabate Ds) 250 mcg IM ASDIRECTED PRN PRN Reason: Post Hemorrhage Docusate Sodium (Colace) 100 mg PO BID PRN PRN Reason: Constipation Last Admin: 05/27/20 21:54 Dose: 100 mg Documented by: Emollient Ointment (Lansinoh Hpa) 0 gm TOP ASDIRECTED PRN PRN Reason: Sore Nipples Oxytocin/Sodium Chloride (Oxytocin 30 Unit/500 Ml-Ns) 30 unit in 500 mls @ 999 mls/hr IV TITRATE [facility] Tranexamic Acid 1,000 mg/ (Sodium Chloride) 110 mls @ 660 mls/hr IV ONETIME PRN PRN Reason: Bleeding Oxytocin/Sodium Chloride (Oxytocin 30 Unit/500 Ml-Ns) 30 unit in 500 mls @ 2 mls/hr IV TITRATE [facility]; Protocol Last Titration: 05/27/20 16:30 Dose: 10 munits/min, 10 mls/hr Documented by: Clindamycin Phosphate 900 mg/ (Premix) 50 mls @ 100 mls/hr IV Q8H SITA Last Admin: 05/27/20 19:00 Dose: 100 mls/hr Documented by: Lactated Ringer's (Ringers, Lactated) 1,000 mls @ 150 mls/hr IV ASDIRECTED SITA Last Admin: 05/27/20 10:24 Dose: 150 mls/hr Documented by: Ibuprofen (Motrin) 400 mg PO Q4H PRN PRN Reason: Pain Ibuprofen (Motrin) 800 mg PO Q6H PRN PRN Reason: Pain Last Admin: 05/28/20 05:14 Dose: 800 mg Documented by: Lidocaine HCl (Xylocaine 1%) 50 ml INJECT ONETIME PRN PRN Reason: Laceration repair Methylergonovine Maleate (Methergine) 0.2 mg IM ASDIRECTED PRN PRN Reason: Post Hemorrhage Misoprostol (Cytotec) 200 mcg PO ONETIME PRN PRN Reason: Post Hemorrhage Misoprostol (Cytotec) 25 mcg VAG Q4H PRN PRN Reason: Cervical Ripening Last Admin: 05/27/20 03:17 Dose: 25 mcg Documented by: Misoprostol (Cytotec) 25 mcg PO Q4H PRN PRN Reason: Cervical Ripening Last Admin: 05/27/20 03:18 Dose: 25 mcg Documented by: Ondansetron HCl (Zofran) 4 mg IVPUSH Q6H PRN PRN Reason: Nausea/Vomiting Prenat Multivit/[place]fers/Iron/Folic Ac ( Mtr) 1 each PO DAILY SITA Last Admin: 05/28/20 09:37 Dose: 1 each Documented by: Sodium Chloride (Saline Flush) 10 ml FLUSH ASDIRECTED PRN PRN Reason: Keep Vein Open Sodium Chloride (Saline Flush) 2.5 ml FLUSH ASDIRECTED PRN PRN Reason: Keep Vein Open Sodium Chloride (Normal Saline) 10 ml IV ASDIRECTED PRN PRN Reason: IV Use Sterile Water (Sterile Water For Irrigation) 1,000 ml IRR ASDIRECTED PRN PRN Reason: delivery Terbutaline Sulfate (Brethine) 0.25 mg SUBCUT ASDIRECTED PRN PRN Reason: Tacysystole Witch Verena (Tucks) 1 pad TOP ASDIRECTED PRN PRN Reason: comfort care Discontinued Medications Fentanyl (Sublimaze) Confirm Administered Dose 100 mcg .ROUTE .STK-MED ONE Stop: 05/27/20 17:02 Ropivacaine (Naropin 0.2%) Confirm Administered Dose 100 mls @ as directed .ROUTE .STK-MED ONE Stop: 05/27/20 17:02 Ropivacaine (Naropin 0.2%) Confirm Administered Dose 20 ml .ROUTE .STK-MED ONE Stop: 05/27/20 17:02 - Infant Interaction Disposition, : [place] at Bedside Interaction: Not Interacting Infant Feeding: Breastfed Infant; Nursed Well, Continues to Breastfeed, Encouraged to Breastfeed Support Person: - Recovery Exam Fundal Tone: Firm Fundal Level: At Umbilicus Fundal Placement: Midline Lochia Amount: Moderate Lochia Color: Rubra/Red Perineum Description: Intact, Minimal Bruising/Swelling, Edematous Episiotomy/Laceration: Approximated Bladder Status: Voiding Urinary Elimination: Voided - Exam General: Alert, Oriented, Cooperative, No Acute Distress HEENT: Pupils Equal, Mucous Membr. Moist/Trevose Neck: Supple Lungs: Clear to Auscultation, Normal Respiratory Effort Cardiovascular: Regular Rate, Regular Rhythm GI/Abdominal Exam: Normal Bowel Sounds, Soft, Non-Tender, No Organomegaly, No Distention Extremities: Normal Inspection, Normal Range of Motion, Non-Tender, No Pedal Edema, Normal Capillary Refill Skin: Warm, Dry, Intact Wound/Incisions: No Drainage Neurological: No New Focal Deficit Psy/Mental Status: Alert, Normal Affect, Normal Mood - Problem List & Annotations (1) (spontaneous vaginal delivery) SNOMED Code(s): 911402964 Code(s): O80 - ENCOUNTER FOR FULL-TERM UNCOMPLICATED DELIVERY Status: Acute Priority: High Current Visit: Yes (2) Lactating mother SNOMED Code(s): 567846626, 508074371 Code(s): Z39.1 - ENCOUNTER FOR CARE AND EXAMINATION OF LACTATING MOTHER Status: Acute Priority: High Current Visit: Yes - Problem List Review Problem List Initiated/Reviewed/Updated: Yes - Plan Plan:: Hemodynamically stable, afebrile. Hemoglobin 12.3, F/U as indicated. Continue PO pain management as needed. Continue eating, voiding, ambulating independently. Plan to D/C this pm or tomorrow am, given patient condition remains stable. Dr. Bautista notified and agreeable with POC
[2020-05-28] MEDS: Lanolin 100% Cream 7 GM Tube TOP PRN (15:39)
[2020-05-29] MEDS: Acetaminophen 500 MG Tab PO PRN (02:58)
[2020-05-29] MEDS: Docusate Sodium 100 MG Cap PO PRN (06:06)
[2020-05-29] MEDS: Ibuprofen 800 MG Tab PO PRN (06:07)
--- NOTE | 2020-05-29 08:38 | PCM.DCSUM1 ---
Discharge Summary - Hospital Course Free Text/Narrative:: Clarisse is a 40 yo ~36 hrs PP S/P uncomplicated to term NBF. A pos, RNI, GBS pos with adequate clindamycin prophylaxis prior to . Patient has no complaints or concerns at this time. Patient is exclusively well, resting comfortably in bed with in arms to right breast Patient reports she is eating, voiding, ambulating independently and without difficulty. Patient denies any problems or concerns at this time except mild-moderate intermittent uterine cramping relieved with Tylenol and Ibuprofen. Patient reports small vaginal bleeding with no recent clots. Patient verbalizes her readiness to be discharged home this evening. Diagnosis: Stroke: No - Discharge Data Discharge Date: 05/29/20 Discharge Disposition: Home, Self-Care 01 Condition: Good - Referral to Home Health Primary Care Physician: PCP None - Discharge Diagnosis/Problem(s) (1) (spontaneous vaginal delivery) SNOMED Code(s): 218838422 ICD Code: O80 - ENCOUNTER FOR FULL-TERM UNCOMPLICATED DELIVERY Status: Acute Priority: High Current Visit: Yes (2) Lactating mother SNOMED Code(s): 635716692, 827707231 ICD Code: Z39.1 - ENCOUNTER FOR CARE AND EXAMINATION OF LACTATING MOTHER Status: Acute Priority: High Current Visit: Yes - Patient Instructions Diet: Usual Diet as Tolerated, Drink 8-10+ Glasses/Day Activity: As Tolerated, No Strenuous Activities, Rest and Relax Today Driving: May Drive Today Driving, Other: Sitz baths for perineal comfort Showering/Bathing: May Shower Notify Provider of: Fever, Increased Pain, Swelling and Redness, Drainage, Nausea and/or Vomiting - Discharge Plan *PRESCRIPTION DRUG MONITORING PROGRAM REVIEWED*: No *COPY OF PRESCRIPTION DRUG MONITORING REPORT IN PATIENT SYDNEE: No Prescriptions/Med Rec: Ibuprofen [Motrin] 800 mg PO Q8H PRN #90 tablet PRN Reason: Pain Home Medications: Home Meds Ibuprofen [Motrin] 800 mg PO Q8H PRN #90 tablet 05/29/20 [Rx] Oxygen Therapy Mode: Room Air Referrals: [facility] [Outside] Laney Grande MD [Physician] - 07/09/20 2:00 pm - Discharge Summary/Plan Comment DC Time >30 min.: No Discharge Summary/Plan Comment: Hemodynamically stable, afebrile. Independent with ADLs, pain well controlled. Ibuprofen prescription sent to pharmacy. Warning S/Ss, when to call for help discussed, no questions or concerns. F/U in office in 6 weeks for visit or sooner if problem arise. - General Info Date of Service: 05/29/20 Admission Dx/Problem (Free Text: Patient Status Order with Admit Dx/Problem 05/27/20 02:42 Patient Status [ADT] Routine Admission Diagnosis/Problem Admission Diagnosis/Problem Clarisse is a 40 yo PPD0 S/P uncomplicated to term NBF. A pos, RNI, GBS pos with adequate clindamycin prophylaxis prior to . Patient has no complaints or concerns at this time. Patient is exclusively well, resting comfortably in bed with in bassinet Patient reports she is eating, voiding, ambulating independently and without difficulty. Patient denies any problems or concerns at this time except mild-moderate intermittent uterine cramping relieved with Tylenol and Ibuprofen. Patient reports moderate vaginal bleeding with no recent clots. Patient verbalizes her readiness to be discharged home this evening. Functional Status: Reports: Pain Controlled - Review of Systems General: Reports: No Symptoms HEENT: Reports: No Symptoms Pulmonary: Reports: No Symptoms Cardiovascular: Reports: No Symptoms Gastrointestinal: Reports: No Symptoms Genitourinary: Reports: No Symptoms Musculoskeletal: Reports: No Symptoms Skin: Reports: No Symptoms Neurological: Reports: No Symptoms Psychiatric: Reports: No Symptoms - Patient Data Vitals - Most Recent: Last Vital Signs Temp 96.7 F L 05/29/20 05:51 Pulse 63 05/29/20 05:51 Resp 16 05/29/20 05:51 BP 118/64 05/29/20 05:51 Pulse Ox 96 05/29/20 05:51 Weight - Most Recent: 165 lb Med Orders - Current: Current Medications Acetaminophen (Tylenol Extra Strength) 500 mg PO Q4H PRN PRN Reason: Pain Acetaminophen (Tylenol Extra Strength) 1,000 mg PO Q4H PRN PRN Reason: Pain Last Admin: 05/29/20 02:58 Dose: 1,000 mg Documented by: Benzocaine/Menthol (Dermoplast Pain Relief 20%-0.5% [place]) 0 gm TOP ASDIRECTED PRN PRN Reason: Perineal Comfort Measure Last Admin: 05/27/20 21:55 Dose: 1 can Documented by: Bisacodyl (Dulcolax) 10 mg RECTAL ONETIME PRN PRN Reason: Constipation Butorphanol Tartrate (Stadol) 1 mg IVPUSH Q1H PRN PRN Reason: Pain Carboprost Tromethamine (Hemabate Ds) 250 mcg IM ASDIRECTED PRN PRN Reason: Post Hemorrhage Docusate Sodium (Colace) 100 mg PO BID PRN PRN Reason: Constipation Last Admin: 05/29/20 06:06 Dose: 100 mg Documented by: Emollient Ointment (Lansinoh Hpa) 0 gm TOP ASDIRECTED PRN PRN Reason: Sore Nipples Last Admin: 05/28/20 15:39 Dose: 1 tube Documented by: Oxytocin/Sodium Chloride (Oxytocin 30 Unit/500 Ml-Ns) 30 unit in 500 mls @ 999 mls/hr IV TITRATE SITA Tranexamic Acid 1,000 mg/ (Sodium Chloride) 110 mls @ 660 mls/hr IV ONETIME PRN PRN Reason: Bleeding Oxytocin/Sodium Chloride (Oxytocin 30 Unit/500 Ml-Ns) 30 unit in 500 mls @ 2 mls/hr IV TITRATE SITA; Protocol Last Titration: 05/27/20 16:30 Dose: 10 munits/min, 10 mls/hr Documented by: Lactated Ringer's (Ringers, Lactated) 1,000 mls @ 150 mls/hr IV ASDIRECTED SITA Last Admin: 05/27/20 10:24 Dose: 150 mls/hr Documented by: Ibuprofen (Motrin) 400 mg PO Q4H PRN PRN Reason: Pain Ibuprofen (Motrin) 800 mg PO Q6H PRN PRN Reason: Pain Last Admin: 05/29/20 06:07 Dose: 800 mg Documented by: Lidocaine HCl (Xylocaine 1%) 50 ml INJECT ONETIME PRN PRN Reason: Laceration repair Methylergonovine Maleate (Methergine) 0.2 mg IM ASDIRECTED PRN PRN Reason: Post Hemorrhage Misoprostol (Cytotec) 200 mcg PO ONETIME PRN PRN Reason: Post Hemorrhage Misoprostol (Cytotec) 25 mcg VAG Q4H PRN PRN Reason: Cervical Ripening Last Admin: 05/27/20 03:17 Dose: 25 mcg Documented by: Misoprostol (Cytotec) 25 mcg PO Q4H PRN PRN Reason: Cervical Ripening Last Admin: 05/27/20 03:18 Dose: 25 mcg Documented by: Ondansetron HCl (Zofran) 4 mg IVPUSH Q6H PRN PRN Reason: Nausea/Vomiting Prenat Multivit/[place]/Iron/Folic Ac ( Mtr) 1 each PO DAILY [facility] Last Admin: 05/28/20 09:37 Dose: 1 each Documented by: Sodium Chloride (Saline Flush) 10 ml FLUSH ASDIRECTED PRN PRN Reason: Keep Vein Open Sodium Chloride (Saline Flush) 2.5 ml FLUSH ASDIRECTED PRN PRN Reason: Keep Vein Open Sodium Chloride (Normal Saline) 10 ml IV ASDIRECTED PRN PRN Reason: IV Use Sterile Water (Sterile Water For Irrigation) 1,000 ml IRR ASDIRECTED PRN PRN Reason: delivery Terbutaline Sulfate (Brethine) 0.25 mg SUBCUT ASDIRECTED PRN PRN Reason: Tacysystole Witch Verena (Tucks) 1 pad TOP ASDIRECTED PRN PRN Reason: comfort care Discontinued Medications Fentanyl (Sublimaze) Confirm Administered Dose 100 mcg .ROUTE .STK-MED ONE Stop: 05/27/20 17:02 Clindamycin Phosphate 900 mg/ (Premix) 50 mls @ 100 mls/hr IV Q8H [facility] Last Admin: 05/27/20 19:00 Dose: 100 mls/hr Documented by: Ropivacaine (Naropin 0.2%) Confirm Administered Dose 100 mls @ as directed .ROUTE .STK-MED ONE Stop: 05/27/20 17:02 Ropivacaine (Naropin 0.2%) Confirm Administered Dose 20 ml .ROUTE .STK-MED ONE Stop: 05/27/20 17:02 - Exam General: Reports: Alert, Oriented, Cooperative, No Acute Distress HEENT: Reports: Pupils Equal, Pupils Reactive, Mucous Membr. Moist/Spearman Neck: Reports: Supple Lungs: Reports: Clear to Auscultation, Normal Respiratory Effort Cardiovascular: Reports: Regular Rate, Regular Rhythm GI/Abdominal Exam: Normal Bowel Sounds, Soft, Non-Tender, No Organomegaly, No Distention (Female) Exam: Normal External Exam, Enlarged Uterus ( uterus, firm @U), Vaginal Bleeding (Small rubra lochia, no clots) Rectal (Female) Exam: Normal Exam, Normal Rectal Tone Back Exam: Reports: Normal Inspection, Full Range of Motion Extremities: Normal Inspection, Normal Range of Motion, Non-Tender, No Pedal Edema, Normal Capillary Refill Skin: Reports: Warm, Dry, Intact Neurological: Reports: No New Focal Deficit Psy/Mental Status: Reports: Alert, Normal Affect, Normal Mood
[2020-05-29] MEDS: Prenatal Multivitamin and Multimineral with Iron Tab PO SCH (09:06)
[2020-05-29] MEDS: Lanolin 100% Cream 7 GM Tube TOP PRN (13:06)
[2020-05-29 16:13] VITALS: BP 119/67; PULSE 76
== END 2020-05-29 16:55 | disposition home or self-care (01) | DRG 560 ==
LOC: MW.OBCHECK 02:24 → MW.OB 02:25 → MW.OBCHECK 02:42 → MW.OB 02:42 → OBSVTOIN 19:50 → MW.OB 23:01
PROVIDERS: ADMIT Obstetrics & Gynecology; ATTEND Obstetrics & Gynecology
PROC: 10E0XZZ Delivery of Products of Conception, External Approach (ICD-10-PCS; principal; 2020-05-27)
PROC: 3E033VJ Introduction of Other Hormone into Peripheral Vein, Percutaneous Approach (ICD-10-PCS; 2020-05-27)
PROC: 0HQ9XZZ Repair Perineum Skin, External Approach (ICD-10-PCS; 2020-05-27)
PROC: 3E0R3BZ Introduction of Anesthetic Agent into Spinal Canal, Percutaneous Approach (ICD-10-PCS; 2020-05-27)
PROC: 00HU33Z Insertion of Infusion Device into Spinal Canal, Percutaneous Approach (ICD-10-PCS; 2020-05-27)
PROC: 3E0P7VZ Introduction of Hormone into Female Reproductive, Via Natural or Artificial Opening (ICD-10-PCS; 2020-05-27)
DX: O69.81X0 Labor and delivery complicated by cord around neck, without compression, not applicable or unspecified (principal); O99.892 Other specified diseases and conditions complicating childbirth; O70.0 First degree perineal laceration during delivery; Z37.0 Single live birth; R82.71 Bacteriuria; Z79.899 Other long term (current) drug therapy; Z3A.38 38 weeks gestation of pregnancy; Z88.1 Allergy status to other antibiotic agents; Z79.891 Long term (current) use of opiate analgesic; Z72.0 Tobacco use; Z79.818 Long term (current) use of other agents affecting estrogen receptors and estrogen levels; Z86.19 Personal history of other infectious and parasitic diseases
CPT/HCPCS: 36415; 51702; 59025; 59409; 82803; 85014; 85018; 85027; 86592; 86850; 86900; 86901; A9270-GY; J2590; J2795; J3010; J3490; J7120

== ENCOUNTER 2021-09-05 00:09 | Inpatient (IN) | payer BC ==
[2021-09-05] MEDS ORDERED: Ondansetron 4 MG/2 ML SDV IVPUSH PRN (00:18)
[2021-09-05] MEDS ORDERED: Carboprost Tromethamine 250 MCG/1 ML Amp IM PRN (00:18)
[2021-09-05] MEDS ORDERED: Butorphanol 1 MG/ML SDV IVPUSH PRN (00:18)
[2021-09-05] MEDS ORDERED: Lidocaine 1% 50 ML MDV INJECT PRN (00:18)
[2021-09-05] MEDS ORDERED: Tranexamic Acid 1,000 MG in Sodium Chloride 0.9% 100 ML IV PRN (00:18)
[2021-09-05] MEDS ORDERED: Misoprostol 200 MCG Tab PO PRN (00:18)
[2021-09-05] MEDS ORDERED: Sodium Chloride 0.9% 2.5 ML Syringe FLUSH PRN (00:18)
[2021-09-05] MEDS ORDERED: Methylergonovine 0.2 MG/1 ML Amp IM PRN (00:18)
[2021-09-05] MEDS ORDERED: Sodium Chloride 0.9% 10 ML Syringe FLUSH PRN (00:18)
[2021-09-05] MEDS ORDERED: Sodium Chloride 0.9% 20 ML SDV IV PRN (00:18)
[2021-09-05] MEDS ORDERED: Terbutaline 1 MG/ML SDV SUBCUT PRN (00:18)
[2021-09-05] MEDS ORDERED: Water For Irrigation,Sterile 1,000 ML Container IRR PRN (00:18)
[2021-09-05] MEDS ORDERED: Nalbuphine 10 MG/1 ML Vial IVPUSH PRN (00:18)
[2021-09-05] MEDS ORDERED: Oxytocin/0.9 % Sodium Chloride 30 UNIT/500 ML BAG IV SCH ×2 (00:30)
[2021-09-05] MEDS ORDERED: Misoprostol 25 MCG (1/4 of 100 MCG) Tab PO PRN ×2 (01:00→05:00)
[2021-09-05] MEDS ORDERED: Misoprostol 25 MCG (1/4 of 100 MCG) Tab VAG PRN ×2 (01:00→05:00)
[2021-09-05] MEDS: Lactated Ringers 1,000 ML IV SCH ×2 (05:10→08:10)
[2021-09-05] MEDS ORDERED: Ropivacaine HCl/PF 100 ML ONE (05:35)
[2021-09-05] MEDS ORDERED: ePHEDrine 50 MG/ML SDV IVPUSH PRN ×2 (05:44)
[2021-09-05] MEDS ORDERED: Ropivacaine HCl/PF 200 MG in Premix Bag 1 BAG EPIDUR SCH (05:45)
[2021-09-05] MEDS ORDERED: Bupivacaine 0.25% 10 ML SDV ONE (05:54)
[2021-09-05] MEDS ORDERED: fentaNYL 100 MCG/2 ML SDV ONE (05:54)
[2021-09-05] MEDS ORDERED: diphenhydrAMINE 50 MG/ML SDV IVPUSH PRN (06:46)
[2021-09-05] MEDS ORDERED: Acetaminophen 500 MG Tab PO PRN (15:41)
[2021-09-05] MEDS ORDERED: Witch Hazel Medicated Pads 40/Jar TOP PRN (15:41)
[2021-09-05] MEDS ORDERED: Benzocaine/Menthol 20%-0.5% Spray 78 GM Cannister TOP PRN (15:41)
[2021-09-05] MEDS ORDERED: Bisacodyl 10 MG Supp RECTAL PRN (15:41)
[2021-09-05] MEDS ORDERED: Lanolin 100% Cream 7 GM Tube TOP PRN (15:41)
[2021-09-05] MEDS ORDERED: Docusate Sodium 100 MG Cap PO PRN (15:41)
[2021-09-05] MEDS ORDERED: Ibuprofen 400 MG Tab PO PRN (15:41)
[2021-09-05] MEDS: Ibuprofen 800 MG Tab PO PRN (18:42)
[2021-09-05] MEDS: Acetaminophen 500 MG Tab PO PRN (20:25)
[2021-09-06] MEDS: Acetaminophen 500 MG Tab PO PRN ×3 (01:52→18:31)
[2021-09-06] MEDS: Ibuprofen 800 MG Tab PO PRN ×2 (08:34→18:32)
[2021-09-06 18:31] VITALS: BP 118/67; PULSE 60
== END 2021-09-06 18:34 | disposition home or self-care (01) | DRG 560 ==
LOC: MW.OBCHECK 00:09 → MW.OB 00:11 → MW.OBCHECK 00:18 → MW.OB 00:18 → OBSVTOIN 15:41 → MW.OB 17:23
PROVIDERS: ADMIT Obstetrics & Gynecology Obstetrics; ATTEND Obstetrics & Gynecology Obstetrics
PROC: 10E0XZZ Delivery of Products of Conception, External Approach (ICD-10-PCS; principal; 2021-09-05)
PROC: 3E0P7VZ Introduction of Hormone into Female Reproductive, Via Natural or Artificial Opening (ICD-10-PCS; 2021-09-05)
PROC: 3E0R3BZ Introduction of Anesthetic Agent into Spinal Canal, Percutaneous Approach (ICD-10-PCS; 2021-09-05)
PROC: 00HU33Z Insertion of Infusion Device into Spinal Canal, Percutaneous Approach (ICD-10-PCS; 2021-09-05)
DX: O99.62 Diseases of the digestive system complicating childbirth (principal); K21.9 Gastro-esophageal reflux disease without esophagitis; O98.52 Other viral diseases complicating childbirth; U07.1 COVID-19; Z3A.39 39 weeks gestation of pregnancy; Z37.0 Single live birth
CPT/HCPCS: 01967; 36415; 51701; 51702; 59025; 59409; 85014; 85018; 85027; 86592; 86850; 86900; 86901; A9270-GY; J1200; J2405; J2590; J2795; J3010; J3490; J7120; U0002